=== PATIENT | female | born 1970 | race Caucasian/White ===

== ENCOUNTER 2018-09-24 18:13 | Inpatient (IN) | payer SELFPAY ==
--- NOTE | 2018-09-24 18:29 | C.PDOC ---
History Of Present Illness 47yo female with history of brain cancer with brain surgery 3 months ago, brought to ER by EMS for evaluation after patient was reported to have 10 seizures prior to arrival. Per EMS, patient had 1 unwitnessed and subsequent 9 witnessed seizures, each lasting approximately 30 seconds; per EMS time of onset was 1725 today. PT was noted to be seizing 15 minutes prior to EMS arrival. Patient was given 2mg Ativan and then 5mg Versed with some improvement. Upon arrival to ER, patient noted to have another seizure and at 1813 was given 2mg Ativan with no resolution. Currently, patient is unresponsive to verbal or painful stimuli. PMD: None Surgery done in [place] 3 months ago Time Seen by Provider: 09/24/18 18:21 Chief Complaint (Nursing): Seizure History Per: EMS, Family History/Exam Limitations: clinical condition Recent Seizure Activity Began: Mins Ago: (48) Number Of Seizures: Multiple (10) Length Of Seizures (Duration): Seconds (30) Post-ictal Period: Duration In Mins: (15) Past Medical History Reviewed: Historical Data, Nursing Documentation, Vital Signs - Medical History PMH: Malignancy (brain cancer) Family History: States: No Known Family Hx Review Of Systems Review Of Systems: ROS cannot be obtained secondary to pt's inabilty to answer questions. Neurological: Positive for: Seizures Physical Exam - Physical Exam Appears: In Acute Distress Skin: Normal Color, No Diaphoretic, No Pale Head: Atraumatic, Normacephalic Eye(s): bilateral: Other (L gaze preferrance) Nose: Normal Neck: Supple Chest: Symmetrical Cardiovascular: Rhythm Regular Respiratory: Normal Breath Sounds Gastrointestinal/Abdominal: Soft Extremity: No Pedal Edema, No Deformity, No Swelling Extremity: Bilateral: Atraumatic Neurological/Psych: No Oriented x3, Other (GCS of 4) Pain Response: Flexor Response To Pain Gait: Unable To Assess Other Neurological Findings: Other (left gaze preference) ED Course And Treatment - Laboratory Results Result Diagrams: 09/24/18 18:43 09/24/18 18:43 Critical Care Time - Critical Care Note Total Time (in mins): 30 Documented critical care: time excludes all time spent performing seperately billable procedures. Medical Decision Making Medical Decision Makinyo female with history of brain cancer, recent surgery 3 months ago Brought to ER by EMS after 10 seizure episodes; patient had post-ictal status of approx 13 minutes and then upon arrival to ER had another seziure Per family, patient takes Keppra 500mg BID and they confirm she took the first dose today. 1812 Patient given Ativan 4mg IV and Decadron 10mg IV with no relief [address] Gutierrez, neurologist director of home economics, recommending Keppra 1g drip GCS 5, remains non-responsive He is agreeable with plan for intubation for airway protection. 1842 Patient intubated by provider, see procedure note. Patient placed on Propofol drip. Labs, CT Head and CXR (post-intubation) ordered. [address] Eva Ny, supervisor sewing department and accepts patient. [address] Lety Ny, hospitalist director of home economics, who accepts patient for admission. Disposition - Disposition Disposition: HOME/ ROUTINE Disposition Time: 19:20 Condition: SERIOUS - Clinical Impression Clinical Impression: Seizure - Scribe Statement The provider has reviewed the documentation as recorded by the Tamar Osei Provider Attestation: All medical record entries made by the Tamar were at my direction and personally dictated by me. I have reviewed the chart and agree that the record accurately reflects my personal performance of the history, physical exam, medical decision making, and the department course for this patient. I have also personally directed, reviewed, and agree with the discharge instructions and d isposition. Procedure: Intubation - Time Performed Time Performed: 18:42 - Time Out Time Out: Side verified, Site verified, Patient ID confirmed - Consent Obtained Consent obtained: Emergent consent implied - Performed By Performed by: Attending Physician - Indications Indication(s):: Airway protection - Method Method:: Oral-Laryngoscopy - Rapid Sequence Intubation Anesthetic:: Etomidate (20mg) Paralytic:: Succinylcholine (100mg) - Tube type Tube type:: Endotracheal tube Tube size:: Cuffed (7.5) Number of attempts:: 1 Depth measured at lip: cm: 24 - Confirmation Confirmation: Bilat. breath sounds, No epigastric gurgle - Post-intubation CXR Post-intubation CXR: Tube in good position
[2018-09-24] MEDS ORDERED: levETIRAcetam 1,000 MG in Sodium Chloride 0.9% 100 ML IVPB SCH (18:30)
[2018-09-24] MEDS ORDERED: Etomidate 20 mg/10ml Inj IV STA (18:40)
[2018-09-24 18:46] LABS: BASO % 0.6 % (0.0-2.0); EOS % 0.2 % (0.0-4.0); HEMOGLOBIN 11.9 g/dL (11.0-16.0); LYMPH # 0.5 K/uL (1.0-4.3); LYMPH % 12.3 % (20.0-40.0); MEAN CELL VOLUME 84.7 fL (81.0-99.0); MEAN CORPUSCULAR HEMOGLOBIN 27.4 pg (27.0-31.0); MEAN CORPUSCULAR HGB CONC 32.3 g/dL (33.0-37.0); MEAN PLATELET VOLUME 9.2 fL (7.2-11.7); MONO # 0.1 K/uL (0.0-0.8); MONO % 3.5 % (0.0-10.0); NEUT # 3.4 K/uL (1.8-7.0); NEUT % 83.4 % (50.0-75.0); NRBC % 0.1 % (0.0-2.0); RBC 4.34 Mil/uL (3.80-5.20); RED CELL DISTRIBUTION WIDTH 15.2 % (11.5-14.5); WHITE BLOOD COUNT 4.1 K/uL (4.8-10.8)
[2018-09-24] MEDS ORDERED: Succinylcholine Chloride 20 mg/ml Syr (5 ml) IV STA (18:48)
--- NOTE | 2018-09-24 18:48 | C.PDOC ---
Time Seen by Provider: 09/24/18 18:21 Chief Complaint (Nursing): Seizure Disposition - Disposition
[2018-09-24] MEDS: Propofol 10 mg/ml 1,000 MG/100 ML VIAL IV PRN ×3 (18:55→22:50)
[2018-09-24 18:59] LABS: ALB/GLOB RATIO 1.4 (1.0-2.1); ALBUMIN 4.7 g/dL (3.5-5.0); BLOOD UREA NITROGEN 11 mg/dL (7-17); CALCIUM 8.4 mg/dl (8.6-10.4); GFR NON-AFRICAN AMERICAN > 60
[2018-09-24] MEDS ORDERED: Midazolam 2 MG/2 ML VIAL ONE ×2 (19:03→19:09)
[2018-09-24] MEDS ORDERED: Midazolam 2 MG/2 ML VIAL IVP ONE ×2 (19:05→19:06)
[2018-09-24 19:11] LABS: ALT/SGPT 21 U/L (9-52); AST/SGOT 31 U/L (14-36)
--- NOTE | 2018-09-24 20:06 | CP.PCM.CON ---
<Mark Villasenor - Last Filed: 09/24/18 19:45> History of Present Illness - History of Present Illness History of Present Illness: PGY-1 ICU consult note for Dr Eva Ny Patient is 47 year old female with past medical history of brain cancer s/p surgery 3 months ago done in [place], brought to the hospital by EMS due to seizures. Patient given ativan and Versed at site, and came to ED and had another seizure. Patient was given loading dose of keppra and was sedated with propofol, and intubated. Patient responding to stimulus, but not awake or oriented. No ROS was attainable due to patient's mental status Pmhx: brain cancer Shx: unspecified brain surgery 3 months ago Meds: unknown All: NKDA Soch and Fmhx: unattainable Past Patient History - Past Social History Smoking Status: Never Smoked - NEUROLOGICAL Hx Neurological Disorder: Yes Hx Seizures: Yes Other/Comment: brain tumor dx 3 months ago- surgery done as per daughter in [place] - PSYCHIATRIC Hx Substance Use: No - SURGICAL HISTORY Hx Surgeries: Yes Other/Comment: Brain tumor surgery Meds Allergies/Adverse Reactions: Allergies Allergy/AdvReac Type Severity Reaction Status Date / Time No Known Allergies Allergy Verified 09/24/18 18:17 - Medications Medications: Current Medications Levetiracetam 1,000 mg/ Sodium (Chloride) 110 mls @ 420 mls/hr IVPB Q12H [facility] Last Admin: 09/24/18 18:54 Dose: 420 mls/hr Propofol (Diprivan) 1,000 mg in 100 mls @ 2.041 mls/hr IV .Q24H PRN; Protocol PRN Reason: TITRATE PER MD ORDER Last Titration: 09/24/18 19:43 Dose: 30 mcg/kg/min, 12.247 mls/hr Levetiracetam 750 mg/ Sodium (Chloride) 107.5 mls @ 420 mls/hr IVPB Q12H [facility] Sodium Chloride (Sodium Chloride 0.9%) 1,000 mls @ 75 mls/hr IV .[id number] [facility] Cefepime HCl (Maxipime Iv 1 Gm Premix) 1 gm in 50 mls @ 100 mls/hr IVPB Q12H [facility]; Protocol Vancomycin HCl 1 gm/ Sodium (Chloride) 250 mls @ 166.7 mls/hr IVPB Q24H [facility]; Protocol Physical Exam - Constitutional Appears: No Acute Distress - Head Exam Head Exam: ATRAUMATIC, NORMAL INSPECTION, NORMOCEPHALIC - ENT Exam ENT Exam: Normal Exam Additional comments: Inutbated - Neck Exam Neck exam: Positive for: Normal Inspection - Respiratory Exam Respiratory Exam: Clear to Auscultation Bilateral, NORMAL BREATHING PATTERN - Cardiovascular Exam Cardiovascular Exam: Tachycardia, +S1, +S2 - GI/Abdominal Exam GI & Abdominal Exam: Distended, Soft - Extremities Exam Extremities exam: Positive for: normal inspection. Negative for: pedal edema - Back Exam Back exam: NORMAL INSPECTION - Neurological Exam Additional comments: not awake, not oriented responds to stimulus - Skin Skin Exam: Dry, Intact, Normal Color, Warm Results - Vital Signs Recent Vital Signs: Last Vital Signs Temp 97.9 F 09/24/18 18:30 Pulse 112 H 09/24/18 19:35 Resp 31 H 09/24/18 19:35 BP 113/60 09/24/18 19:35 Pulse Ox 100 09/24/18 19:35 - Labs Result Diagrams: 09/24/18 18:43 09/24/18 18:43 Labs: Laboratory Results - last 24 hr 09/24/18 09/24/18 09/24/18 18:19 18:43 18:43 WBC 4.1 L RBC 4.34 Hgb 11.9 Hct 36.8 MCV 84.7 MCH 27.4 MCHC 32.3 L RDW 15.2 H Plt Count 215 MPV 9.2 Neut % (Auto) 83.4 H Lymph % (Auto) 12.3 L Dodge % (Auto) 3.5 Eos % (Auto) 0.2 Baso % (Auto) 0.6 Neut # (Auto) 3.4 Lymph # (Auto) 0.5 L Dodge # (Auto) 0.1 Eos # (Auto) 0.0 Baso # (Auto) 0.0 Sodium 139 Potassium 4.0 Chloride 104 Carbon Dioxide 23 Anion Gap 16 BUN 11 Creatinine 0.6 L Est GFR ( Amer) > 60 Est GFR (Non-Af Amer) > 60 POC Glucose (mg/dL) 164 H Random Glucose 149 H Calcium 8.4 L Magnesium 2.0 Total Bilirubin 0.5 AST 31 ALT 21 Alkaline Phosphatase 91 Total Protein 8.0 Albumin 4.7 Globulin 3.3 Albumin/Globulin Ratio 1.4 Assessment & Plan - Assessment and Plan (Free Text) Plan: Pt is a 47 year old female with pmhx of brain cancer, brought by EMS for seizures this afternoon, intubated in ED, transferred to ICU for further management of ventilation and sedation with propofol , pending CT head and keppra given, on abx for possible aspiration after tube placement Neuro Ativan and Versed given by EMS seizure at arrival - given ativan, decadron ventilated and on sedation with propofol Loading Keppra x 1 1000mg Keppra 750mg Q12H Bedside EEG in the morning possible extubation tomorrow swallow eval Neurochecks hx of brain cancer CT head w.o contrast Neuro consult - Dr Gutierrez- help is appreciated Cardio NEERU Q4H x 2 Monitor vitals normotensive at this time Pulm Ventilation and sedated GI protonix NPO Nephro repeat am labs electrolytes wnl ID possible aspiration/ meningitis Vanco Q24H, Cefepime Q12H Lact blood culture urine culture Lact and CK PPX DVT -SCDS GI - Protonix Plan discussed with Dr Eva Villasenor, PGY-1 - Date & Time Date: 09/24/18 Time: 20:06 <Hollis Ny - Last Filed: 09/25/18 06:54> Meds - Medications Medications: Current Medications Levetiracetam 750 mg/ Sodium (Chloride) 107.5 mls @ 420 mls/hr IVPB Q12H [facility] Last Admin: 09/25/18 00:24 Dose: Not Given Sodium Chloride (Sodium Chloride 0.9%) 1,000 mls @ 75 mls/hr IV .[id number] [facility] Last Admin: 09/24/18 21:35 Dose: 75 mls/hr Cefepime HCl (Maxipime Iv 1 Gm Premix) 1 gm in 50 mls @ 100 mls/hr IVPB Q12H [facility]; Protocol Last Admin: 09/24/18 21:26 Dose: 100 mls/hr Vancomycin HCl 1 gm/ Sodium (Chloride) 250 mls @ 166.7 mls/hr IVPB Q24H [facility]; Protocol Last Admin: 09/24/18 22:17 Dose: 166.7 mls/hr Propofol (Diprivan) 1,000 mg in 100 mls @ 2.22 mls/hr IV .Q24H PRN; Protocol PRN Reason: TITRATE PER MD ORDER Last Admin: 09/25/18 03:32 Dose: 40 mcg/kg/min, 17.76 mls/hr Pantoprazole Sodium (Protonix Inj) 40 mg IVP DAILY [facility] Results - Vital Signs Recent Vital Signs: Last Vital Signs Temp 98.6 F 09/25/18 04:00 Pulse 53 L 09/25/18 05:14 Resp 20 09/25/18 05:14 BP 132/66 09/25/18 05:14 Pulse Ox 100 09/25/18 05:14 - Labs Result Diagrams: 09/25/18 05:55 09/25/18 05:55 Labs: Laboratory Results - last 24 hr 09/24/18 09/24/18 09/24/18 18:19 18:43 18:43 WBC 4.1 L RBC 4.34 Hgb 11.9 Hct 36.8 MCV 84.7 MCH 27.4 MCHC 32.3 L RDW 15.2 H Plt Count 215 MPV 9.2 Neut % (Auto) 83.4 H Lymph % (Auto) 12.3 L Dodge % (Auto) 3.5 Eos % (Auto) 0.2 Baso % (Auto) 0.6 Neut # (Auto) 3.4 Lymph # (Auto) 0.5 L Dodge # (Auto) 0.1 Eos # (Auto) 0.0 Baso # (Auto) 0.0 Puncture Site pCO2 pO2 HCO3 ABG pH ABG Total CO2 ABG O2 Saturation ABG Base Excess ABG Hemoglobin ABG Carboxyhemoglobin POC ABG HHb (Measured) ABG Methemoglobin Diaz Test A-a O2 Difference Respiratory Index Hgb O2 Saturation Vent Mode Mechanical Rate FiO2 Tidal Volume PEEP Sodium 139 Potassium 4.0 Chloride 104 Carbon Dioxide 23 Anion Gap 16 BUN 11 Creatinine 0.6 L Est GFR ( Amer) > 60 Est GFR (Non-Af Amer) > 60 POC Glucose (mg/dL) 164 H Random Glucose 149 H Lactic Acid Calcium 8.4 L Phosphorus Magnesium 2.0 Total Bilirubin 0.5 AST 31 ALT 21 Alkaline Phosphatase 91 Total Creatine Kinase CK-MB (Mass) Troponin I Total Protein 8.0 Albumin 4.7 Globulin 3.3 Albumin/Globulin Ratio 1.4 09/24/18 09/24/18 09/25/18 21:10 21:10 01:00 WBC RBC Hgb Hct MCV MCH MCHC RDW Plt Count MPV Neut % (Auto) Lymph % (Auto) Dodge % (Auto) Eos % (Auto) Baso % (Auto) Neut # (Auto) Lymph # (Auto) Dodge # (Auto) Eos # (Auto) Baso # (Auto) Puncture Site pCO2 pO2 HCO3 ABG pH ABG Total CO2 ABG O2 Saturation ABG Base Excess ABG Hemoglobin ABG Carboxyhemoglobin POC ABG HHb (Measured) ABG Methemoglobin Diaz Test A-a O2 Difference Respiratory Index Hgb O2 Saturation Vent Mode Mechanical Rate FiO2 Tidal Volume PEEP Sodium Potassium Chloride Carbon Dioxide Anion Gap BUN Creatinine Est GFR ( Amer) Est GFR (Non-Af Amer) POC Glucose (mg/dL) 135 H Random Glucose Lactic Acid 1.4 Calcium Phosphorus Magnesium Total Bilirubin AST ALT Alkaline Phosphatase Total Creatine Kinase 185 H CK-MB (Mass) 0.71 Troponin I < 0.0120 Total Protein Albumin Globulin Albumin/Globulin Ratio 09/25/18 09/25/18 09/25/18 05:40 05:55 05:55 WBC RBC Hgb Hct MCV MCH MCHC RDW Plt Count MPV Neut % (Auto) Lymph % (Auto) Dodge % (Auto) Eos % (Auto) Baso % (Auto) Neut # (Auto) Lymph # (Auto) Dodge # (Auto) Eos # (Auto) Baso # (Auto) Puncture Site Rb pCO2 26 L pO2 156 H HCO3 22.1 ABG pH 7.47 H ABG Total CO2 19.7 L ABG O2 Saturation 99.4 H ABG Base Excess -3.7 L ABG Hemoglobin 10.5 L ABG Carboxyhemoglobin 1.2 POC ABG HHb (Measured) 0.6 ABG Methemoglobin 0.7 Diaz Test Na A-a O2 Difference 97.0 Respiratory Index 0.6 Hgb O2 Saturation 97.5 Vent Mode Prvc Mechanical Rate 20 FiO2 40.0 Tidal Volume 450 PEEP 5 Sodium 139 Potassium 4.0 Chloride 108 H Carbon Dioxide 21 L Anion Gap 14 BUN 8 Creatinine 0.5 L Est GFR ( Amer) > 60 Est GFR (Non-Af Amer) > 60 POC Glucose (mg/dL) Random Glucose 142 H Lactic Acid 1.4 Calcium 8.8 Phosphorus 3.1 Magnesium 2.1 Total Bilirubin 0.3 AST 30 ALT 28 Alkaline Phosphatase 91 Total Creatine Kinase CK-MB (Mass) Troponin I Total Protein 7.2 Albumin 4.4 Globulin 2.9 Albumin/Globulin Ratio 1.5 09/25/18 05:55 WBC 3.9 L RBC 4.11 Hgb 11.5 Hct 34.5 MCV 83.9 MCH 27.9 MCHC 33.2 RDW 15.5 H Plt Count 216 MPV 9.4 Neut % (Auto) 78.6 H Lymph % (Auto) 18.0 L Dodge % (Auto) 3.2 Eos % (Auto) 0.0 Baso % (Auto) 0.2 Neut # (Auto) 3.1 Lymph # (Auto) 0.7 L Dodge # (Auto) 0.1 Eos # (Auto) 0.0 Baso # (Auto) 0.0 Puncture Site pCO2 pO2 HCO3 ABG pH ABG Total CO2 ABG O2 Saturation ABG Base Excess ABG Hemoglobin ABG Carboxyhemoglobin POC ABG HHb (Measured) ABG Methemoglobin Diaz Test A-a O2 Difference Respiratory Index Hgb O2 Saturation Vent Mode Mechanical Rate FiO2 Tidal Volume PEEP Sodium Potassium Chloride Carbon Dioxide Anion Gap BUN Creatinine Est GFR ( Amer) Est GFR (Non-Af Amer) POC Glucose (mg/dL) Random Glucose Lactic Acid Calcium Phosphorus Magnesium Total Bilirubin AST ALT Alkaline Phosphatase Total Creatine Kinase CK-MB (Mass) Troponin I Total Protein Albumin Globulin Albumin/Globulin Ratio Assessment & Plan - Assessment and Plan (Free Text) Plan: Seizures post brain mass resectoin -continue barbara yang EEG -hypoxic respiraotry failrue: continue: ventilation to keep spo2 >92 and pH b/w 7.35-7.45 -Aspiration: start empirically ebx, obtain sputum cultuer an sserial lactic -continue dvt/.pud ppx cc time 49 minutes above note refelcts my clinical management
[2018-09-24] MEDS: Cefepime IV 1 gm in Dextrose 1 GM/50 ML BAG IVPB SCH (21:26)
[2018-09-24] MEDS: Sodium Chloride 0.9% 1,000 ML IV SCH (21:35)
[2018-09-24 21:39] LABS: CK-MB 0.71 ng/mL (0.0-3.38)
[2018-09-24 22:35] VITALS: BMI 30.8
--- NOTE | 2018-09-24 23:35 | CP.PCM.HP ---
<Quan Schofield - Last Filed: 09/24/18 23:32> History of Present Illness - History of Present Illness History of Present Illness: PGY-1 History and Physical for Dr[address] 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 Patient had post-ictal status of ~13 minutes and then upon arrival to ER had another witnessed seizure. Per family, p lyssa takes Keppra 500mg BID and they confirm she took the first dose today. Patient was given Ativan 4 mg , Versed 5 mg on the field. Also given Ativan 4 mg and Decadron 10 mg IV in ED with no relief. Per Neurology recs, loading dose of Keppra was then given, patient placed on propofol drip and intubated. On current exam, patient responsive to painful stimuli, seen making minor spontaneous gestu res with LEs but not awake or oriented. 12 pt ROS unattainable due to clinical condition. PMHx: CVA, gliobastoma multiforme of R frontal lobe PSHx: surgical resection of brain tumor (3 months ago) Allergies: NKDA Home Meds: as per chart Family Hx: unknown Social Hx: unknown Present on Admission - Present on Admission Any Indicators Present on Admission: No Review of Systems - Review of Systems Systems not reviewed;Unavailable: Altered Mental Status, Intubated Past Patient History - Past Social History Smoking Status: Never Smoked - NEUROLOGICAL Hx Neurological Disorder: Yes Hx Seizures: Yes Other/Comment: brain tumor dx 3 months ago- surgery done as per daughter in [place] - MUSCULOSKELETAL/RHEUMATOLOGICAL Hx Falls: Yes - PSYCHIATRIC Hx Substance Use: No - SURGICAL HISTORY Hx Surgeries: Yes Other/Comment: Brain tumor surgery Meds Allergies/Adverse Reactions: Allergies Allergy/AdvReac Type Severity Reaction Status Date / Time No Known Allergies Allergy Verified 09/24/18 18:17 Physical Exam - Constitutional Appears: No Acute Distress - Head Exam Head Exam: ATRAUMATIC, NORMAL INSPECTION, NORMOCEPHALIC - ENT Exam ENT Exam: Normal Exam Additional comments: Intubated - Neck Exam Neck exam: Positive for: Normal Inspection - Respiratory Exam Respiratory Exam: Clear to Auscultation Bilateral, NORMAL BREATHING PATTERN Additional comments: on ventilator FiO2 40% - Cardiovascular Exam Cardiovascular Exam: REGULAR RHYTHM, +S1, +S2 - GI/Abdominal Exam GI & Abdominal Exam: Normal Bowel Sounds, Soft - Extremities Exam Extremities exam: Positive for: normal capillary refill, normal inspection, pedal pulses present. Negative for: pedal edema - Neurological Exam Additional comments: not awake, not oriented responds to stimulus - Skin Skin Exam: Dry, Intact, Normal Color, Warm Results - Vital Signs Recent Vital Signs: Last Vital Signs Temp 100.8 F H 09/24/18 20:00 Pulse 74 09/24/18 23:00 Resp 20 09/24/18 23:00 BP 110/56 L 09/24/18 23:14 Pulse Ox 100 09/24/18 23:00 - Labs Result Diagrams: 09/24/18 18:43 09/24/18 18:43 Labs: Laboratory Results - last 24 hr 09/24/18 09/24/18 09/24/18 18:19 18:43 18:43 WBC 4.1 L RBC 4.34 Hgb 11.9 Hct 36.8 MCV 84.7 MCH 27.4 MCHC 32.3 L RDW 15.2 H Plt Count 215 MPV 9.2 Neut % (Auto) 83.4 H Lymph % (Auto) 12.3 L [place] % (Auto) 3.5 Eos % (Auto) 0.2 Baso % (Auto) 0.6 Neut # (Auto) 3.4 Lymph # (Auto) 0.5 L [place] # (Auto) 0.1 Eos # (Auto) 0.0 Baso # (Auto) 0.0 Sodium 139 Potassium 4.0 Chloride 104 Carbon Dioxide 23 Anion Gap 16 BUN 11 Creatinine 0.6 L Est GFR ( Amer) > 60 Est GFR (Non-Af Amer) > 60 POC Glucose (mg/dL) 164 H Random Glucose 149 H Lactic Acid Calcium 8.4 L Magnesium 2.0 Total Bilirubin 0.5 AST 31 ALT 21 Alkaline Phosphatase 91 Total Creatine Kinase CK-MB (Mass) Troponin I Total Protein 8.0 Albumin 4.7 Globulin 3.3 Albumin/Globulin Ratio 1.4 09/24/18 09/24/18 21:10 21:10 WBC RBC Hgb Hct MCV MCH MCHC RDW Plt Count MPV Neut % (Auto) Lymph % (Auto) [place] % (Auto) Eos % (Auto) Baso % (Auto) Neut # (Auto) Lymph # (Auto) [place] # (Auto) Eos # (Auto) Baso # (Auto) Sodium Potassium Chloride Carbon Dioxide Anion Gap BUN Creatinine Est GFR ( Amer) Est GFR (Non-Af Amer) POC Glucose (mg/dL) Random Glucose Lactic Acid 1.4 Calcium Magnesium Total Bilirubin AST ALT Alkaline Phosphatase Total Creatine Kinase 185 H CK-MB (Mass) 0.71 Troponin I < 0.0120 Total Protein Albumin Globulin Albumin/Globulin Ratio Assessment & Plan - Assessment and Plan (Free Text) Plan: Status epilepticus -s/p Ativan 4 mg, Versed 5 mg on field -s/p Ativan 4 mg, Decadron 10 mg IV in ED -loading dose of Keppra (1 gm) -Keppra 750 mg q12h -Neurology (Dr. Gutierrez) on case -bedside EEG scheduled tomorrow AM -CT head: s/p L frontopariental craniotomy w/ underlying postsurgical encephalomalacia and porencephaly. No acute pathology -f/u brain MRI -propfol ggt for sedatioon -intubated -vanco/cefepime emprically for possible aspiration -f/u lactate, BCx, Urine Cx -in ICU for further monitoring PPx, Diet, Disposition -DVT: scds -GI: protonix -Diet: NPO Case discussed with Dr. Jimmy Schofield DO, PGY-1 <Chito Marquez P - Last Filed: 09/25/18 08:12> Results - Vital Signs Recent Vital Signs: Last Vital Signs Temp 98.6 F 09/25/18 04:00 Pulse 52 L 09/25/18 07:14 Resp 20 09/25/18 07:14 BP 129/55 L 09/25/18 07:14 Pulse Ox 100 09/25/18 07:14 - Labs Result Diagrams: 09/25/18 05:55 09/25/18 05:55 Labs: Laboratory Results - last 24 hr 09/24/18 09/24/18 09/24/18 18:19 18:43 18:43 WBC 4.1 L RBC 4.34 Hgb 11.9 Hct 36.8 MCV 84.7 MCH 27.4 MCHC 32.3 L RDW 15.2 H Plt Count 215 MPV 9.2 Neut % (Auto) 83.4 H Lymph % (Auto) 12.3 L [place] % (Auto) 3.5 Eos % (Auto) 0.2 Baso % (Auto) 0.6 Neut # (Auto) 3.4 Lymph # (Auto) 0.5 L [place] # (Auto) 0.1 Eos # (Auto) 0.0 Baso # (Auto) 0.0 Puncture Site pCO2 pO2 HCO3 ABG pH ABG Total CO2 ABG O2 Saturation ABG Base Excess ABG Hemoglobin ABG Carboxyhemoglobin POC ABG HHb (Measured) ABG Methemoglobin Diaz Test A-a O2 Difference Respiratory Index Hgb O2 Saturation Vent Mode Mechanical Rate FiO2 Tidal Volume PEEP Sodium 139 Potassium 4.0 Chloride 104 Carbon Dioxide 23 Anion Gap 16 BUN 11 Creatinine 0.6 L Est GFR ( Amer) > 60 Est GFR (Non-Af Amer) > 60 POC Glucose (mg/dL) 164 H Random Glucose 149 H Lactic Acid Calcium 8.4 L Phosphorus Magnesium 2.0 Total Bilirubin 0.5 AST 31 ALT 21 Alkaline Phosphatase 91 Total Creatine Kinase CK-MB (Mass) Troponin I Total Protein 8.0 Albumin 4.7 Globulin 3.3 Albumin/Globulin Ratio 1.4 09/24/18 09/24/18 09/25/18 21:10 21:10 01:00 WBC RBC Hgb Hct MCV MCH MCHC RDW Plt Count MPV Neut % (Auto) Lymph % (Auto) [place] % (Auto) Eos % (Auto) Baso % (Auto) Neut # (Auto) Lymph # (Auto) [place] # (Auto) Eos # (Auto) Baso # (Auto) Puncture Site pCO2 pO2 HCO3 ABG pH ABG Total CO2 ABG O2 Saturation ABG Base Excess ABG Hemoglobin ABG Carboxyhemoglobin POC ABG HHb (Measured) ABG Methemoglobin Diaz Test A-a O2 Difference Respiratory Index Hgb O2 Saturation Vent Mode Mechanical Rate FiO2 Tidal Volume PEEP Sodium Potassium Chloride Carbon Dioxide Anion Gap BUN Creatinine Est GFR ( Amer) Est GFR (Non-Af Amer) POC Glucose (mg/dL) 135 H Random Glucose Lactic Acid 1.4 Calcium Phosphorus Magnesium Total Bilirubin AST ALT Alkaline Phosphatase Total Creatine Kinase 185 H CK-MB (Mass) 0.71 Troponin I < 0.0120 Total Protein Albumin Globulin Albumin/Globulin Ratio 09/25/18 09/25/18 09/25/18 05:40 05:55 05:55 WBC RBC Hgb Hct MCV MCH MCHC RDW Plt Count MPV Neut % (Auto) Lymph % (Auto) [place] % (Auto) Eos % (Auto) Baso % (Auto) Neut # (Auto) Lymph # (Auto) [place] # (Auto) Eos # (Auto) Baso # (Auto) Puncture Site Rb pCO2 26 L pO2 156 H HCO3 22.1 ABG pH 7.47 H ABG Total CO2 19.7 L ABG O2 Saturation 99.4 H ABG Base Excess -3.7 L ABG Hemoglobin 10.5 L ABG Carboxyhemoglobin 1.2 POC ABG HHb (Measured) 0.6 ABG Methemoglobin 0.7 Diaz Test Na A-a O2 Difference 97.0 Respiratory Index 0.6 Hgb O2 Saturation 97.5 Vent Mode Prvc Mechanical Rate 20 FiO2 40.0 Tidal Volume 450 PEEP 5 Sodium 139 Potassium 4.0 Chloride 108 H Carbon Dioxide 21 L Anion Gap 14 BUN 8 Creatinine 0.5 L Est GFR ( Amer) > 60 Est GFR (Non-Af Amer) > 60 POC Glucose (mg/dL) Random Glucose 142 H Lactic Acid 1.4 Calcium 8.8 Phosphorus 3.1 Magnesium 2.1 Total Bilirubin 0.3 AST 30 ALT 28 Alkaline Phosphatase 91 Total Creatine Kinase CK-MB (Mass) Troponin I Total Protein 7.2 Albumin 4.4 Globulin 2.9 Albumin/Globulin Ratio 1.5 09/25/18 05:55 WBC 3.9 L RBC 4.11 Hgb 11.5 Hct 34.5 MCV 83.9 MCH 27.9 MCHC 33.2 RDW 15.5 H Plt Count 216 MPV 9.4 Neut % (Auto) 78.6 H Lymph % (Auto) 18.0 L [place] % (Auto) 3.2 Eos % (Auto) 0.0 Baso % (Auto) 0.2 Neut # (Auto) 3.1 Lymph # (Auto) 0.7 L [place] # (Auto) 0.1 Eos # (Auto) 0.0 Baso # (Auto) 0.0 Puncture Site pCO2 pO2 HCO3 ABG pH ABG Total CO2 ABG O2 Saturation ABG Base Excess ABG Hemoglobin ABG Carboxyhemoglobin POC ABG HHb (Measured) ABG Methemoglobin Diaz Test A-a O2 Difference Respiratory Index Hgb O2 Saturation Vent Mode Mechanical Rate FiO2 Tidal Volume PEEP Sodium Potassium Chloride Carbon Dioxide Anion Gap BUN Creatinine Est GFR ( Amer) Est GFR (Non-Af Amer) POC Glucose (mg/dL) Random Glucose Lactic Acid Calcium Phosphorus Magnesium Total Bilirubin AST ALT Alkaline Phosphatase Total Creatine Kinase CK-MB (Mass) Troponin I Total Protein Albumin Globulin Albumin/Globulin Ratio Attending/Attestation - Attestation I have personally seen and examined this patient.: Yes I have fully participated in the care of the patient.: Yes I have reviewed all pertinent clinical information: Yes Notes (Text): 09/25/18 08:09 Intractable seizure, recent GBM related craniotomy on the left side, patient examined while she was sedated with diprivan and loaded with keppra and started on IV abx suspecting aspiration, fio2 reduced to 40% tolerating ok, the clinical response appeared more purposeful suggesting not in status but continuous EEG still pending, gi/dvt prophylaxis, see orders for detail.
[2018-09-25] MEDS: Propofol 10 mg/ml 1,000 MG/100 ML VIAL IV PRN ×2 (03:32→08:10)
[2018-09-25 06:02] LABS: BASO % 0.2 % (0.0-2.0); HEMOGLOBIN 11.5 g/dL (11.0-16.0); LYMPH # 0.7 K/uL (1.0-4.3); MEAN CELL VOLUME 83.9 fL (81.0-99.0); MEAN CORPUSCULAR HEMOGLOBIN 27.9 pg (27.0-31.0); MEAN CORPUSCULAR HGB CONC 33.2 g/dL (33.0-37.0); MEAN PLATELET VOLUME 9.4 fL (7.2-11.7); MONO # 0.1 K/uL (0.0-0.8); MONO % 3.2 % (0.0-10.0); NEUT # 3.1 K/uL (1.8-7.0); NEUT % 78.6 % (50.0-75.0); NRBC % 0.1 % (0.0-2.0); RBC 4.11 Mil/uL (3.80-5.20); RED CELL DISTRIBUTION WIDTH 15.5 % (11.5-14.5); WHITE BLOOD COUNT 3.9 K/uL (4.8-10.8)
[2018-09-25 06:07] LABS: ARTERIAL BLOOD GAS HCO3 22.1 mmol/L (21-28); ARTERIAL BLOOD GAS HEMOGLOBIN 10.5 g/dL (11.7-17.4); ARTERIAL BLOOD GAS O2 SAT 99.4 % (95-98); ARTERIAL BLOOD GAS PCO2 26 mm/Hg (35-45); ARTERIAL BLOOD GAS PH 7.47 (7.35-7.45); ARTERIAL BLOOD GAS PO2 156 mm/Hg (80-100); ARTERIAL BLOOD GAS TCO2 19.7 mmol/L (22-28)
[2018-09-25 06:20] LABS: ALB/GLOB RATIO 1.5 (1.0-2.1); ALBUMIN 4.4 g/dL (3.5-5.0); ALT/SGPT 28 U/L (9-52); AST/SGOT 30 U/L (14-36); BLOOD UREA NITROGEN 8 mg/dL (7-17); CALCIUM 8.8 mg/dl (8.6-10.4); GFR NON-AFRICAN AMERICAN > 60
[2018-09-25] MEDS: Cefepime IV 1 gm in Dextrose 1 GM/50 ML BAG IVPB SCH ×2 (07:52→19:10)
--- NOTE | 2018-09-25 08:17 | RAD ---
Date of service: 09/25/2018 HISTORY: ETT COMPARISON: Chest radiographs 09/24/2018. FINDINGS: LUNGS: Endotracheal tube unchanged in position. In the interval, a nasogastric tube is in placed enter into the abdomen with the tip off the image. No consolidation bilaterally. Improved aeration bilaterally. PLEURA: No significant pleural effusion identified, no pneumothorax apparent. CARDIOVASCULAR: No aortic atherosclerotic calcification present. Normal cardiac size. No pulmonary vascular congestion. OSSEOUS STRUCTURES: No significant abnormalities. VISUALIZED UPPER ABDOMEN: Normal. OTHER FINDINGS: None. IMPRESSION: Stable ET tube positioning. Improved aeration bilaterally. Nasogastric tube placed in the interval entering into the left jono abdomen. Tip off the image. Consolidation or pleural effusion bilaterally. No pulmonary vascular congestion.
--- NOTE | 2018-09-25 08:22 | RAD ---
HISTORY: seizure COMPARISON: No prior chest x-ray available for comparison. Subsequent chest x-ray performed 09/25/18 TECHNIQUE: Chest, one view. FINDINGS: Examination limited by habitus, hypoinflation, and patient obliquity. LUNGS: Superior most lung field excluded from view (right greater than left). The endotracheal tube resides at the fareed and should be repositioned. Patchy bibasilar atelectasis or infiltrates. Probable trace pleural effusions. No definite pneumothorax. CARDIOVASCULAR: Heart size appears top normal. OSSEOUS STRUCTURES: Degenerative changes. VISUALIZED UPPER ABDOMEN: Unremarkable. OTHER FINDINGS: None. IMPRESSION: Superior most lung field excluded from view (right greater than left). The endotracheal tube resides at the fareed and should be repositioned; subsequent chest x-ray performed demonstrate endotracheal tube has already been repositioned terminating approximately 2.3 cm above the fareed. Patchy bibasilar atelectasis or infiltrates. Probable trace pleural effusions.
--- NOTE | 2018-09-25 09:12 | CT ---
Date of service: 09/24/2018 PROCEDURE: CT HEAD WITHOUT CONTRAST. HISTORY: seizure, hx of tumor removal COMPARISON: None available. TECHNIQUE: Axial computed tomography images were obtained through the head/brain without intravenous contrast. Radiation dose: Total exam DLP = 908.62 mGy-cm. This CT exam was performed using one or more of the following dose reduction techniques: Automated exposure control, adjustment of the mA and/or kV according to patient size, and/or use of iterative reconstruction technique. FINDINGS: HEMORRHAGE: No intracranial hemorrhage. BRAIN: Postoperative change identified at the left frontal lobe comprised of limited cystic encephalomalacia and volume loss in this patient with history of prior left frontal craniotomy. No positive mass effect identified at the operative site or throughout the remainder of the brain including the posterior fossa. The remainder of the cerebrum exhibits good corticomedullary preservation with no parenchymal edema identified. Posterior fossa contents are unremarkable including the brainstem. VENTRICLES: Unremarkable. No hydrocephalus. CALVARIUM: Unremarkable. PARANASAL SINUSES: Mild multifocal sinusitis affects bilateral sphenoid ethmoid and maxillary sinuses with left frontal sinus hypoplasia identified. MASTOID AIR CELLS: Unremarkable as visualized. No inflammatory changes. OTHER FINDINGS: None. IMPRESSION: Postoperative changes status post left frontal craniotomy with cystic encephalomalacia and volume loss noted at the left frontal lobe. No positive mass effect or definite intracranial hemorrhage appreciable. No prior comparison available. Consider follow-up MRI with and without contrast if clinically warranted. Correlation with prior outside imaging can be performed if retrieved as well. Addendum to this report could subsequently be provided. Examination otherwise unremarkable within the intracranial space. Concordant preliminary report from [facility], 09/24/2018, 8:08 p.m..
[2018-09-25] MEDS: Sodium Chloride 0.9% 1,000 ML IV SCH ×3 (09:42→22:00)
--- NOTE | 2018-09-25 13:02 | CP.CCUPN ---
<Trey Mcdonald - Last Filed: 09/25/18 15:53> CCU Objective - Vital Signs / Intake & Output Vital Signs (Last 4 hours): Vital Signs Temp Pulse Resp BP Pulse Ox 09/25/18 15:14 57 L 12 127/56 L 98 09/25/18 15:00 61 20 99 09/25/18 14:15 60 22 130/68 98 09/25/18 14:14 70 18 138/76 99 09/25/18 14:00 65 21 97 09/25/18 13:14 64 135/72 100 09/25/18 13:00 68 100 09/25/18 12:44 83 132/77 100 09/25/18 12:14 75 135/38 L 100 09/25/18 12:00 99.2 F 80 31 H 132/77 96 Intake and Output (Last 8hrs): Intake & Output 09/25/18 09/25/18 09/25/18 06:59 14:59 22:59 Intake Total 828.4 907.7 75 Output Total 650 750 Balance 178.4 907.7 -675 Weight 162 lb 11.218 oz Intake: IV 100 180 Intake, IV Amount 728.4 727.7 75 Left Antecubital 128.4 77.7 0 Left External Jugular 300 Right Hand 300 650 75 Output: Gastric Amount 200 250 Stomach 200 250 Urine 450 500 Urine, Voided 450 500 Urine/Stool Mix 0 Other: # Voids Urine, Voided 2 1 - Medications Active Medications: Active Medications Generic Name Dose Route Start Last Admin Trade Name Freq PRN Reason Stop Dose Admin Heparin Sodium (Porcine) 5,000 units 09/25/18 22:00 Heparin SC Q12 LIVIER Sodium Chloride 1,000 mls @ 75 mls/hr 09/24/18 19:15 09/25/18 09:42 Sodium Chloride 0.9% IV Not Given .[id number] LIVIER Cefepime HCl 1 gm in 50 mls @ 100 mls/hr 09/24/18 19:15 09/25/18 07:52 Maxipime Iv 1 Gm Premix IVPB 100 mls/hr Q12H LIVIER Administration Protocol Vancomycin HCl 1 gm/ Sodium 250 mls @ 166.7 mls/hr 09/24/18 19:45 09/24/18 22:17 Chloride IVPB 166.7 mls/hr Q24H LIVIER Administration Protocol Propofol 1,000 mg in 100 mls @ 2.22 mls/hr 09/24/18 22:38 09/25/18 12:04 Diprivan IV 0 mcg/kg/min .Q24H PRN 0 mls/hr TITRATE PER MD ORDER Titration Protocol 5 MCG/KG/MIN Levetiracetam 1,000 mg/ Sodium 110 mls @ 420 mls/hr 09/25/18 13:00 09/25/18 13:06 Chloride IVPB 420 mls/hr Q12H LIVIER Administration Pantoprazole Sodium 40 mg 09/25/18 10:00 09/25/18 12:18 Protonix Inj IVP 40 mg DAILY LIVIER Administration - Patient Studies Lab Studies: Microbiology Studies 09/24/18 22:29 Gram Stain - Final Trachasp Lab Studies 09/25/18 09/25/18 09/25/18 Range/Units 12:13 07:26 05:55 WBC 3.9 L (4.8-10.8) K/uL RBC 4.11 (3.80-5.20) Mil/uL Hgb 11.5 (11.0-16.0) g/dL Hct 34.5 (34.0-47.0) % MCV 83.9 (81.0-99.0) fL MCH 27.9 (27.0-31.0) pg MCHC 33.2 (33.0-37.0) g/dL RDW 15.5 H (11.5-14.5) % Plt Count 216 (130-400) K/uL MPV 9.4 (7.2-11.7) fL Neut % (Auto) 78.6 H (50.0-75.0) % Lymph % (Auto) 18.0 L (20.0-40.0) % Alpine % (Auto) 3.2 (0.0-10.0) % Eos % (Auto) 0.0 (0.0-4.0) % Baso % (Auto) 0.2 (0.0-2.0) % Neut # (Auto) 3.1 (1.8-7.0) K/uL Lymph # (Auto) 0.7 L (1.0-4.3) K/uL Alpine # (Auto) 0.1 (0.0-0.8) K/uL Eos # (Auto) 0.0 (0.0-0.7) K/uL Baso # (Auto) 0.0 (0.0-0.2) K/uL Puncture Site pCO2 (35-45) mm/Hg pO2 (80-100) mm/Hg HCO3 (21-28) mmol/L ABG pH (7.35-7.45) ABG Total CO2 (22-28) mmol/L ABG O2 Saturation (95-98) % ABG Base Excess (-2.0-3.0) mmol/L ABG Hemoglobin (11.7-17.4) g/dL ABG Carboxyhemoglobin (0.5-1.5) % POC ABG HHb (Measured) (0.0-5.0) % ABG Methemoglobin (0.0-3.0) % Diaz Test A-a O2 Difference mm/Hg Respiratory Index Hgb O2 Saturation (95.0-98.0) % Vent Mode Mechanical Rate FiO2 % Tidal Volume PEEP Sodium (132-148) mmol/L Potassium (3.6-5.2) mmol/L Chloride (98-107) mmol/L Carbon Dioxide (22-30) mmol/L Anion Gap (10-20) BUN (7-17) mg/dL Creatinine (0.7-1.2) mg/dL Est GFR ( Amer) Est GFR (Non-Af Amer) POC Glucose (mg/dL) 112 H 137 H (65-110) mg/dL Random Glucose (65-105) mg/dL Lactic Acid (0.7-2.1) mmol/L Calcium (8.6-10.4) mg/dl Phosphorus (2.5-4.5) mg/dL Magnesium (1.6-2.3) mg/dL Total Bilirubin (0.2-1.3) mg/dL AST (14-36) U/L ALT (9-52) U/L Alkaline Phosphatase (38-126) U/L Total Creatine Kinase (30-135) U/L CK-MB (Mass) (0.0-3.38) ng/mL Troponin I (0.00-0.120) ng/mL Total Protein (6.3-8.3) g/dL Albumin (3.5-5.0) g/dL Globulin (2.2-3.9) gm/dL Albumin/Globulin Ratio (1.0-2.1) 09/25/18 09/25/18 09/25/18 Range/Units 05:55 05:55 05:40 WBC (4.8-10.8) K/uL RBC (3.80-5.20) Mil/uL Hgb (11.0-16.0) g/dL Hct (34.0-47.0) % MCV (81.0-99.0) fL MCH (27.0-31.0) pg MCHC (33.0-37.0) g/dL RDW (11.5-14.5) % Plt Count (130-400) K/uL MPV (7.2-11.7) fL Neut % (Auto) (50.0-75.0) % Lymph % (Auto) (20.0-40.0) % Alpine % (Auto) (0.0-10.0) % Eos % (Auto) (0.0-4.0) % Baso % (Auto) (0.0-2.0) % Neut # (Auto) (1.8-7.0) K/uL Lymph # (Auto) (1.0-4.3) K/uL Alpine # (Auto) (0.0-0.8) K/uL Eos # (Auto) (0.0-0.7) K/uL Baso # (Auto) (0.0-0.2) K/uL Puncture Site Rb pCO2 26 L (35-45) mm/Hg pO2 156 H (80-100) mm/Hg HCO3 22.1 (21-28) mmol/L ABG pH 7.47 H (7.35-7.45) ABG Total CO2 19.7 L (22-28) mmol/L ABG O2 Saturation 99.4 H (95-98) % ABG Base Excess -3.7 L (-2.0-3.0) mmol/L ABG Hemoglobin 10.5 L (11.7-17.4) g/dL ABG Carboxyhemoglobin 1.2 (0.5-1.5) % POC ABG HHb (Measured) 0.6 (0.0-5.0) % ABG Methemoglobin 0.7 (0.0-3.0) % Diaz Test Na A-a O2 Difference 97.0 mm/Hg Respiratory Index 0.6 Hgb O2 Saturation 97.5 (95.0-98.0) % Vent Mode Prvc Mechanical Rate 20 FiO2 40.0 % Tidal Volume 450 PEEP 5 Sodium 139 (132-148) mmol/L Potassium 4.0 (3.6-5.2) mmol/L Chloride 108 H (98-107) mmol/L Carbon Dioxide 21 L (22-30) mmol/L Anion Gap 14 (10-20) BUN 8 (7-17) mg/dL Creatinine 0.5 L (0.7-1.2) mg/dL Est GFR ( Amer) > 60 Est GFR (Non-Af Amer) > 60 POC Glucose (mg/dL) (65-110) mg/dL Random Glucose 142 H (65-105) mg/dL Lactic Acid 1.4 (0.7-2.1) mmol/L Calcium 8.8 (8.6-10.4) mg/dl Phosphorus 3.1 (2.5-4.5) mg/dL Magnesium 2.1 (1.6-2.3) mg/dL Total Bilirubin 0.3 (0.2-1.3) mg/dL AST 30 (14-36) U/L ALT 28 (9-52) U/L Alkaline Phosphatase 91 (38-126) U/L Total Creatine Kinase (30-135) U/L CK-MB (Mass) (0.0-3.38) ng/mL Troponin I (0.00-0.120) ng/mL Total Protein 7.2 (6.3-8.3) g/dL Albumin 4.4 (3.5-5.0) g/dL Globulin 2.9 (2.2-3.9) gm/dL Albumin/Globulin Ratio 1.5 (1.0-2.1) 09/25/18 09/24/18 09/24/18 Range/Units 01:00 21:10 21:10 WBC (4.8-10.8) K/uL RBC (3.80-5.20) Mil/uL Hgb (11.0-16.0) g/dL Hct (34.0-47.0) % MCV (81.0-99.0) fL MCH (27.0-31.0) pg MCHC (33.0-37.0) g/dL RDW (11.5-14.5) % Plt Count (130-400) K/uL MPV (7.2-11.7) fL Neut % (Auto) (50.0-75.0) % Lymph % (Auto) (20.0-40.0) % Alpine % (Auto) (0.0-10.0) % Eos % (Auto) (0.0-4.0) % Baso % (Auto) (0.0-2.0) % Neut # (Auto) (1.8-7.0) K/uL Lymph # (Auto) (1.0-4.3) K/uL Alpine # (Auto) (0.0-0.8) K/uL Eos # (Auto) (0.0-0.7) K/uL Baso # (Auto) (0.0-0.2) K/uL Puncture Site pCO2 (35-45) mm/Hg pO2 (80-100) mm/Hg HCO3 (21-28) mmol/L ABG pH (7.35-7.45) ABG Total CO2 (22-28) mmol/L ABG O2 Saturation (95-98) % ABG Base Excess (-2.0-3.0) mmol/L ABG Hemoglobin (11.7-17.4) g/dL ABG Carboxyhemoglobin (0.5-1.5) % POC ABG HHb (Measured) (0.0-5.0) % ABG Methemoglobin (0.0-3.0) % Diaz Test A-a O2 Difference mm/Hg Respiratory Index Hgb O2 Saturation (95.0-98.0) % Vent Mode Mechanical Rate FiO2 % Tidal Volume PEEP Sodium (132-148) mmol/L Potassium (3.6-5.2) mmol/L Chloride (98-107) mmol/L Carbon Dioxide (22-30) mmol/L Anion Gap (10-20) BUN (7-17) mg/dL Creatinine (0.7-1.2) mg/dL Est GFR ( Amer) Est GFR (Non-Af Amer) POC Glucose (mg/dL) 135 H (65-110) mg/dL Random Glucose (65-105) mg/dL Lactic Acid 1.4 (0.7-2.1) mmol/L Calcium (8.6-10.4) mg/dl Phosphorus (2.5-4.5) mg/dL Magnesium (1.6-2.3) mg/dL Total Bilirubin (0.2-1.3) mg/dL AST (14-36) U/L ALT (9-52) U/L Alkaline Phosphatase (38-126) U/L Total Creatine Kinase 185 H (30-135) U/L CK-MB (Mass) 0.71 (0.0-3.38) ng/mL Troponin I < 0.0120 (0.00-0.120) ng/mL Total Protein (6.3-8.3) g/dL Albumin (3.5-5.0) g/dL Globulin (2.2-3.9) gm/dL Albumin/Globulin Ratio (1.0-2.1) 09/24/18 09/24/18 09/24/18 Range/Units 18:43 18:43 18:19 WBC 4.1 L (4.8-10.8) K/uL RBC 4.34 (3.80-5.20) Mil/uL Hgb 11.9 (11.0-16.0) g/dL Hct 36.8 (34.0-47.0) % MCV 84.7 (81.0-99.0) fL MCH 27.4 (27.0-31.0) pg MCHC 32.3 L (33.0-37.0) g/dL RDW 15.2 H (11.5-14.5) % Plt Count 215 (130-400) K/uL MPV 9.2 (7.2-11.7) fL Neut % (Auto) 83.4 H (50.0-75.0) % Lymph % (Auto) 12.3 L (20.0-40.0) % Alpine % (Auto) 3.5 (0.0-10.0) % Eos % (Auto) 0.2 (0.0-4.0) % Baso % (Auto) 0.6 (0.0-2.0) % Neut # (Auto) 3.4 (1.8-7.0) K/uL Lymph # (Auto) 0.5 L (1.0-4.3) K/uL Alpine # (Auto) 0.1 (0.0-0.8) K/uL Eos # (Auto) 0.0 (0.0-0.7) K/uL Baso # (Auto) 0.0 (0.0-0.2) K/uL Puncture Site pCO2 (35-45) mm/Hg pO2 (80-100) mm/Hg HCO3 (21-28) mmol/L ABG pH (7.35-7.45) ABG Total CO2 (22-28) mmol/L ABG O2 Saturation (95-98) % ABG Base Excess (-2.0-3.0) mmol/L ABG Hemoglobin (11.7-17.4) g/dL ABG Carboxyhemoglobin (0.5-1.5) % POC ABG HHb (Measured) (0.0-5.0) % ABG Methemoglobin (0.0-3.0) % Diaz Test A-a O2 Difference mm/Hg Respiratory Index Hgb O2 Saturation (95.0-98.0) % Vent Mode Mechanical Rate FiO2 % Tidal Volume PEEP Sodium 139 (132-148) mmol/L Potassium 4.0 (3.6-5.2) mmol/L Chloride 104 (98-107) mmol/L Carbon Dioxide 23 (22-30) mmol/L Anion Gap 16 (10-20) BUN 11 (7-17) mg/dL Creatinine 0.6 L (0.7-1.2) mg/dL Est GFR ( Amer) > 60 Est GFR (Non-Af Amer) > 60 POC Glucose (mg/dL) 164 H (65-110) mg/dL Random Glucose 149 H (65-105) mg/dL Lactic Acid (0.7-2.1) mmol/L Calcium 8.4 L (8.6-10.4) mg/dl Phosphorus (2.5-4.5) mg/dL Magnesium 2.0 (1.6-2.3) mg/dL Total Bilirubin 0.5 (0.2-1.3) mg/dL AST 31 (14-36) U/L ALT 21 (9-52) U/L Alkaline Phosphatase 91 (38-126) U/L Total Creatine Kinase (30-135) U/L CK-MB (Mass) (0.0-3.38) ng/mL Troponin I (0.00-0.120) ng/mL Total Protein 8.0 (6.3-8.3) g/dL Albumin 4.7 (3.5-5.0) g/dL Globulin 3.3 (2.2-3.9) gm/dL Albumin/Globulin Ratio 1.4 (1.0-2.1) Laboratory Results - last 24 hr 09/24/18 09/24/18 09/24/18 18:19 18:43 18:43 WBC 4.1 L RBC 4.34 Hgb 11.9 Hct 36.8 MCV 84.7 MCH 27.4 MCHC 32.3 L RDW 15.2 H Plt Count 215 MPV 9.2 Neut % (Auto) 83.4 H Lymph % (Auto) 12.3 L Alpine % (Auto) 3.5 Eos % (Auto) 0.2 Baso % (Auto) 0.6 Neut # (Auto) 3.4 Lymph # (Auto) 0.5 L Alpine # (Auto) 0.1 Eos # (Auto) 0.0 Baso # (Auto) 0.0 Puncture Site pCO2 pO2 HCO3 ABG pH ABG Total CO2 ABG O2 Saturation ABG Base Excess ABG Hemoglobin ABG Carboxyhemoglobin POC ABG HHb (Measured) ABG Methemoglobin Diaz Test A-a O2 Difference Respiratory Index Hgb O2 Saturation Vent Mode Mechanical Rate FiO2 Tidal Volume PEEP Sodium 139 Potassium 4.0 Chloride 104 Carbon Dioxide 23 Anion Gap 16 BUN 11 Creatinine 0.6 L Est GFR ( Amer) > 60 Est GFR (Non-Af Amer) > 60 POC Glucose (mg/dL) 164 H Random Glucose 149 H Lactic Acid Calcium 8.4 L Phosphorus Magnesium 2.0 Total Bilirubin 0.5 AST 31 ALT 21 Alkaline Phosphatase 91 Total Creatine Kinase CK-MB (Mass) Troponin I Total Protein 8.0 Albumin 4.7 Globulin 3.3 Albumin/Globulin Ratio 1.4 09/24/18 09/24/18 09/25/18 21:10 21:10 01:00 WBC RBC Hgb Hct MCV MCH MCHC RDW Plt Count MPV Neut % (Auto) Lymph % (Auto) Alpine % (Auto) Eos % (Auto) Baso % (Auto) Neut # (Auto) Lymph # (Auto) Alpine # (Auto) Eos # (Auto) Baso # (Auto) Puncture Site pCO2 pO2 HCO3 ABG pH ABG Total CO2 ABG O2 Saturation ABG Base Excess ABG Hemoglobin ABG Carboxyhemoglobin POC ABG HHb (Measured) ABG Methemoglobin Diaz Test A-a O2 Difference Respiratory Index Hgb O2 Saturation Vent Mode Mechanical Rate FiO2 Tidal Volume PEEP Sodium Potassium Chloride Carbon Dioxide Anion Gap BUN Creatinine Est GFR ( Amer) Est GFR (Non-Af Amer) POC Glucose (mg/dL) 135 H Random Glucose Lactic Acid 1.4 Calcium Phosphorus Magnesium Total Bilirubin AST ALT Alkaline Phosphatase Total Creatine Kinase 185 H CK-MB (Mass) 0.71 Troponin I < 0.0120 Total Protein Albumin Globulin Albumin/Globulin Ratio 09/25/18 09/25/18 09/25/18 05:40 05:55 05:55 WBC RBC Hgb Hct MCV MCH MCHC RDW Plt Count MPV Neut % (Auto) Lymph % (Auto) Alpine % (Auto) Eos % (Auto) Baso % (Auto) Neut # (Auto) Lymph # (Auto) Alpine # (Auto) Eos # (Auto) Baso # (Auto) Puncture Site Rb pCO2 26 L pO2 156 H HCO3 22.1 ABG pH 7.47 H ABG Total CO2 19.7 L ABG O2 Saturation 99.4 H ABG Base Excess -3.7 L ABG Hemoglobin 10.5 L ABG Carboxyhemoglobin 1.2 POC ABG HHb (Measured) 0.6 ABG Methemoglobin 0.7 Diaz Test Na A-a O2 Difference 97.0 Respiratory Index 0.6 Hgb O2 Saturation 97.5 Vent Mode Prvc Mechanical Rate 20 FiO2 40.0 Tidal Volume 450 PEEP 5 Sodium 139 Potassium 4.0 Chloride 108 H Carbon Dioxide 21 L Anion Gap 14 BUN 8 Creatinine 0.5 L Est GFR ( Amer) > 60 Est GFR (Non-Af Amer) > 60 POC Glucose (mg/dL) Random Glucose 142 H Lactic Acid 1.4 Calcium 8.8 Phosphorus 3.1 Magnesium 2.1 Total Bilirubin 0.3 AST 30 ALT 28 Alkaline Phosphatase 91 Total Creatine Kinase CK-MB (Mass) Troponin I Total Protein 7.2 Albumin 4.4 Globulin 2.9 Albumin/Globulin Ratio 1.5 09/25/18 09/25/18 09/25/18 05:55 07:26 12:13 WBC 3.9 L RBC 4.11 Hgb 11.5 Hct 34.5 MCV 83.9 MCH 27.9 MCHC 33.2 RDW 15.5 H Plt Count 216 MPV 9.4 Neut % (Auto) 78.6 H Lymph % (Auto) 18.0 L Alpine % (Auto) 3.2 Eos % (Auto) 0.0 Baso % (Auto) 0.2 Neut # (Auto) 3.1 Lymph # (Auto) 0.7 L Alpine # (Auto) 0.1 Eos # (Auto) 0.0 Baso # (Auto) 0.0 Puncture Site pCO2 pO2 HCO3 ABG pH ABG Total CO2 ABG O2 Saturation ABG Base Excess ABG Hemoglobin ABG Carboxyhemoglobin POC ABG HHb (Measured) ABG Methemoglobin Diaz Test A-a O2 Difference Respiratory Index Hgb O2 Saturation Vent Mode Mechanical Rate FiO2 Tidal Volume PEEP Sodium Potassium Chloride Carbon Dioxide Anion Gap BUN Creatinine Est GFR ( Amer) Est GFR (Non-Af Amer) POC Glucose (mg/dL) 137 H 112 H Random Glucose Lactic Acid Calcium Phosphorus Magnesium Total Bilirubin AST ALT Alkaline Phosphatase Total Creatine Kinase CK-MB (Mass) Troponin I Total Protein Albumin Globulin Albumin/Globulin Ratio Radiology Impressions: Radiology Impressions Head CT 09/24/18 18:23 IMPRESSION: Postoperative changes status post left frontal craniotomy with cystic encephalomalacia and volume loss noted at the left frontal lobe. No positive mass effect or definite intracranial hemorrhage appreciable. No prior comparison available. Consider follow-up MRI with and without contrast if clinically warranted. Correlation with prior outside imaging can be performed if retrieved as well. Addendum to this report could subsequently be provided. Examination otherwise unremarkable within the intracranial space. Concordant preliminary report from Jin, 09/24/2018, 8:08 p.m.. Chest X-Ray 09/24/18 18:25 IMPRESSION: Superior most lung field excluded from view (right greater than left). The endotracheal tube resides at the fareed and should be repositioned; subsequent chest x-ray performed demonstrate endotracheal tube has already been repositioned terminating approximately 2.3 cm above the fareed. Patchy bibasilar atelectasis or infiltrates. Probable trace pleural effusions. Chest X-Ray 09/25/18 06:32 IMPRESSION: Stable ET tube positioning. Improved aeration bilaterally. Nasogastric tube placed in the interval entering into the left jono abdomen. Tip off the image. Consolidation or pleural effusion bilaterally. No pulmonary vascular congestion. Critical Care Progress Note - Nutrition Nutrition: Nutrition Category Date Time Status NPO Diet [DIET] Diets 09/24/18 Dinner Active Attending/Attestation - Attestation I have personally seen and examined this patient.: Yes I have fully participated in the care of the patient.: Yes I have reviewed all pertinent clinical information: Yes Notes (Text): 09/25/18 15:53 I have seen and examined the patient. Medical records, lab studies, and imaging were reviewed by me and a management plan was formulated on multidisciplinary rounds with resident Dr. Villasenor. I agree with their documented assessment and plan. Patient has had no further seizure episodes. Discussed with Neuro - Dr. Matos, will increase Keppra to 1000mg bid. Alert and tolerating PS trials, will extubate. Critical Care Time 35 minutes. Multi-disciplinary rounds were performed with house staff, nursing, speech therapy, respiratory therapy, pharmacy and nutrition with integrated input from the primary team/attending and other consulting services. The documented time is cumulative and includes review of patient data/exams/labs/chart review and examination of the patient on rounds and throughout the day; time is exclusive of any procedures or teaching time. <Mark Villasenor - Last Filed: 09/25/18 17:38> CCU Subjective - Physician Review Subjective (Free Text): PGY-1 ICU progress note for Dr Mcdonald service Patient seen and examined at bedside. Patient is sedated and intubated at this time. no acute events overnight. ROS unattainable due to patient's current status. PAtient on video eeg at this time. Critical Care Time Spent (in minutes): 35 CCU Objective - Vital Signs / Intake & Output Vital Signs (Last 4 hours): Vital Signs Temp Pulse Resp BP Pulse Ox 09/25/18 12:00 99.2 F 80 31 H 132/77 96 09/25/18 11:24 48 L 136/69 100 09/25/18 11:14 56 L 121/56 L 100 09/25/18 11:00 54 L 100 09/25/18 10:14 55 L 120/57 L 99 09/25/18 10:00 53 L 99 09/25/18 09:14 59 L 114/61 99 Intake and Output (Last 8hrs): Intake & Output 09/24/18 09/25/18 09/25/18 22:59 06:59 14:59 Intake Total 646.6 828.4 707.7 Output Total 650 Balance 646.6 178.4 707.7 Weight 163 lb 2.273 oz 162 lb 11.218 oz Intake: IV 100 180 Intake, IV Amount 646.6 728.4 527.7 Left Antecubital 46.6 128.4 77.7 Left External Jugular 600 300 Right Hand 0 300 450 Output: Gastric Amount 200 Stomach 200 Urine 450 Urine, Voided 450 Urine/Stool Mix 0 Other: # Voids Urine, Voided 2 - Physical Exam Mouth: Positive for: Moist Mucous Membranes Neck: Positive for: Normal Range of Motion Respiratory/Chest: Positive for: Clear to Auscultation. Negative for: Respiratory Distress, Accessory Muscle Use, Wheezes Cardiovascular: Positive for: Regular Rate and Rhythm, Normal S1, S2 Abdomen: Positive for: Normal Bowel Sounds. Negative for: Tenderness, Distention Upper Extremity: Positive for: Normal Inspection. Negative for: Cyanosis, Edema Lower Extremity: Positive for: Normal Inspection. Negative for: Edema Neurological: Positive for: Other (on sedation ) Psychiatric: Negative for: Alert, Oriented x 3 - Medications Active Medications: Active Medications Generic Name Dose Route Start Last Admin Trade Name Enriqueq PRN Reason Stop Dose Admin Sodium Chloride 1,000 mls @ 75 mls/hr 09/24/18 19:15 09/25/18 09:42 Sodium Chloride 0.9% IV Not Given .[id number] LIVIER Cefepime HCl 1 gm in 50 mls @ 100 mls/hr 09/24/18 19:15 09/25/18 07:52 Maxipime Iv 1 Gm Premix IVPB 100 mls/hr Q12H LIVIER Administration Protocol Vancomycin HCl 1 gm/ Sodium 250 mls @ 166.7 mls/hr 09/24/18 19:45 09/24/18 22:17 Chloride IVPB 166.7 mls/hr Q24H LIVIER Administration Protocol Propofol 1,000 mg in 100 mls @ 2.22 mls/hr 09/24/18 22:38 09/25/18 12:04 Diprivan IV 0 mcg/kg/min .Q24H PRN 0 mls/hr TITRATE PER MD ORDER Titration Protocol 5 MCG/KG/MIN Levetiracetam 1,000 mg/ Sodium 110 mls @ 420 mls/hr 09/25/18 13:00 Chloride IVPB Q12H LIVIER Pantoprazole Sodium 40 mg 09/25/18 10:00 09/25/18 12:18 Protonix Inj IVP 40 mg DAILY LIVIER Administration - Patient Studies Lab Studies: Microbiology Studies 09/24/18 22:29 Gram Stain - Final Trachasp Lab Studies 09/25/18 09/25/18 09/25/18 Range/Units 12:13 07:26 05:55 WBC 3.9 L (4.8-10.8) K/uL RBC 4.11 (3.80-5.20) Mil/uL Hgb 11.5 (11.0-16.0) g/dL Hct 34.5 (34.0-47.0) % MCV 83.9 (81.0-99.0) fL MCH 27.9 (27.0-31.0) pg MCHC 33.2 (33.0-37.0) g/dL RDW 15.5 H (11.5-14.5) % Plt Count 216 (130-400) K/uL MPV 9.4 (7.2-11.7) fL Neut % (Auto) 78.6 H (50.0-75.0) % Lymph % (Auto) 18.0 L (20.0-40.0) % Alpine % (Auto) 3.2 (0.0-10.0) % Eos % (Auto) 0.0 (0.0-4.0) % Baso % (Auto) 0.2 (0.0-2.0) % Neut # (Auto) 3.1 (1.8-7.0) K/uL Lymph # (Auto) 0.7 L (1.0-4.3) K/uL Alpine # (Auto) 0.1 (0.0-0.8) K/uL Eos # (Auto) 0.0 (0.0-0.7) K/uL Baso # (Auto) 0.0 (0.0-0.2) K/uL Puncture Site pCO2 (35-45) mm/Hg pO2 (80-100) mm/Hg HCO3 (21-28) mmol/L ABG pH (7.35-7.45) ABG Total CO2 (22-28) mmol/L ABG O2 Saturation (95-98) % ABG Base Excess (-2.0-3.0) mmol/L ABG Hemoglobin (11.7-17.4) g/dL ABG Carboxyhemoglobin (0.5-1.5) % POC ABG HHb (Measured) (0.0-5.0) % ABG Methemoglobin (0.0-3.0) % Diaz Test A-a O2 Difference mm/Hg Respiratory Index Hgb O2 Saturation (95.0-98.0) % Vent Mode Mechanical Rate FiO2 % Tidal Volume PEEP Sodium (132-148) mmol/L Potassium (3.6-5.2) mmol/L Chloride (98-107) mmol/L Carbon Dioxide (22-30) mmol/L Anion Gap (10-20) BUN (7-17) mg/dL Creatinine (0.7-1.2) mg/dL Est GFR ( Amer) Est GFR (Non-Af Amer) POC Glucose (mg/dL) 112 H 137 H (65-110) mg/dL Random Glucose (65-105) mg/dL Lactic Acid (0.7-2.1) mmol/L Calcium (8.6-10.4) mg/dl Phosphorus (2.5-4.5) mg/dL Magnesium (1.6-2.3) mg/dL Total Bilirubin (0.2-1.3) mg/dL AST (14-36) U/L ALT (9-52) U/L Alkaline Phosphatase (38-126) U/L Total Creatine Kinase (30-135) U/L CK-MB (Mass) (0.0-3.38) ng/mL Troponin I (0.00-0.120) ng/mL Total Protein (6.3-8.3) g/dL Albumin (3.5-5.0) g/dL Globulin (2.2-3.9) gm/dL Albumin/Globulin Ratio (1.0-2.1) 09/25/18 09/25/18 09/25/18 Range/Units 05:55 05:55 05:40 WBC (4.8-10.8) K/uL RBC (3.80-5.20) Mil/uL Hgb (11.0-16.0) g/dL Hct (34.0-47.0) % MCV (81.0-99.0) fL MCH (27.0-31.0) pg MCHC (33.0-37.0) g/dL RDW (11.5-14.5) % Plt Count (130-400) K/uL MPV (7.2-11.7) fL Neut % (Auto) (50.0-75.0) % Lymph % (Auto) (20.0-40.0) % Alpine % (Auto) (0.0-10.0) % Eos % (Auto) (0.0-4.0) % Baso % (Auto) (0.0-2.0) % Neut # (Auto) (1.8-7.0) K/uL Lymph # (Auto) (1.0-4.3) K/uL Alpine # (Auto) (0.0-0.8) K/uL Eos # (Auto) (0.0-0.7) K/uL Baso # (Auto) (0.0-0.2) K/uL Puncture Site Rb pCO2 26 L (35-45) mm/Hg pO2 156 H (80-100) mm/Hg HCO3 22.1 (21-28) mmol/L ABG pH 7.47 H (7.35-7.45) ABG Total CO2 19.7 L (22-28) mmol/L ABG O2 Saturation 99.4 H (95-98) % ABG Base Excess -3.7 L (-2.0-3.0) mmol/L ABG Hemoglobin 10.5 L (11.7-17.4) g/dL ABG Carboxyhemoglobin 1.2 (0.5-1.5) % POC ABG HHb (Measured) 0.6 (0.0-5.0) % ABG Methemoglobin 0.7 (0.0-3.0) % Diaz Test Na A-a O2 Difference 97.0 mm/Hg Respiratory Index 0.6 Hgb O2 Saturation 97.5 (95.0-98.0) % Vent Mode Prvc Mechanical Rate 20 FiO2 40.0 % Tidal Volume 450 PEEP 5 Sodium 139 (132-148) mmol/L Potassium 4.0 (3.6-5.2) mmol/L Chloride 108 H (98-107) mmol/L Carbon Dioxide 21 L (22-30) mmol/L Anion Gap 14 (10-20) BUN 8 (7-17) mg/dL Creatinine 0.5 L (0.7-1.2) mg/dL Est GFR ( Amer) > 60 Est GFR (Non-Af Amer) > 60 POC Glucose (mg/dL) (65-110) mg/dL Random Glucose 142 H (65-105) mg/dL Lactic Acid 1.4 (0.7-2.1) mmol/L Calcium 8.8 (8.6-10.4) mg/dl Phosphorus 3.1 (2.5-4.5) mg/dL Magnesium 2.1 (1.6-2.3) mg/dL Total Bilirubin 0.3 (0.2-1.3) mg/dL AST 30 (14-36) U/L ALT 28 (9-52) U/L Alkaline Phosphatase 91 (38-126) U/L Total Creatine Kinase (30-135) U/L CK-MB (Mass) (0.0-3.38) ng/mL Troponin I (0.00-0.120) ng/mL Total Protein 7.2 (6.3-8.3) g/dL Albumin 4.4 (3.5-5.0) g/dL Globulin 2.9 (2.2-3.9) gm/dL Albumin/Globulin Ratio 1.5 (1.0-2.1) 09/25/18 09/24/18 09/24/18 Range/Units 01:00 21:10 21:10 WBC (4.8-10.8) K/uL RBC (3.80-5.20) Mil/uL Hgb (11.0-16.0) g/dL Hct (34.0-47.0) % MCV (81.0-99.0) fL MCH (27.0-31.0) pg MCHC (33.0-37.0) g/dL RDW (11.5-14.5) % Plt Count (130-400) K/uL MPV (7.2-11.7) fL Neut % (Auto) (50.0-75.0) % Lymph % (Auto) (20.0-40.0) % Alpine % (Auto) (0.0-10.0) % Eos % (Auto) (0.0-4.0) % Baso % (Auto) (0.0-2.0) % Neut # (Auto) (1.8-7.0) K/uL Lymph # (Auto) (1.0-4.3) K/uL Alpine # (Auto) (0.0-0.8) K/uL Eos # (Auto) (0.0-0.7) K/uL Baso # (Auto) (0.0-0.2) K/uL Puncture Site pCO2 (35-45) mm/Hg pO2 (80-100) mm/Hg HCO3 (21-28) mmol/L ABG pH (7.35-7.45) ABG Total CO2 (22-28) mmol/L ABG O2 Saturation (95-98) % ABG Base Excess (-2.0-3.0) mmol/L ABG Hemoglobin (11.7-17.4) g/dL ABG Carboxyhemoglobin (0.5-1.5) % POC ABG HHb (Measured) (0.0-5.0) % ABG Methemoglobin (0.0-3.0) % Diaz Test A-a O2 Difference mm/Hg Respiratory Index Hgb O2 Saturation (95.0-98.0) % Vent Mode Mechanical Rate FiO2 % Tidal Volume PEEP Sodium (132-148) mmol/L Potassium (3.6-5.2) mmol/L Chloride (98-107) mmol/L Carbon Dioxide (22-30) mmol/L Anion Gap (10-20) BUN (7-17) mg/dL Creatinine (0.7-1.2) mg/dL Est GFR ( Amer) Est GFR (Non-Af Amer) POC Glucose (mg/dL) 135 H (65-110) mg/dL Random Glucose (65-105) mg/dL Lactic Acid 1.4 (0.7-2.1) mmol/L Calcium (8.6-10.4) mg/dl Phosphorus (2.5-4.5) mg/dL Magnesium (1.6-2.3) mg/dL Total Bilirubin (0.2-1.3) mg/dL AST (14-36) U/L ALT (9-52) U/L Alkaline Phosphatase (38-126) U/L Total Creatine Kinase 185 H (30-135) U/L CK-MB (Mass) 0.71 (0.0-3.38) ng/mL Troponin I < 0.0120 (0.00-0.120) ng/mL Total Protein (6.3-8.3) g/dL Albumin (3.5-5.0) g/dL Globulin (2.2-3.9) gm/dL Albumin/Globulin Ratio (1.0-2.1) 09/24/18 09/24/18 09/24/18 Range/Units 18:43 18:43 18:19 WBC 4.1 L (4.8-10.8) K/uL RBC 4.34 (3.80-5.20) Mil/uL Hgb 11.9 (11.0-16.0) g/dL Hct 36.8 (34.0-47.0) % MCV 84.7 (81.0-99.0) fL MCH 27.4 (27.0-31.0) pg MCHC 32.3 L (33.0-37.0) g/dL RDW 15.2 H (11.5-14.5) % Plt Count 215 (130-400) K/uL MPV 9.2 (7.2-11.7) fL Neut % (Auto) 83.4 H (50.0-75.0) % Lymph % (Auto) 12.3 L (20.0-40.0) % [place] % (Auto) 3.5 (0.0-10.0) % Eos % (Auto) 0.2 (0.0-4.0) % Baso % (Auto) 0.6 (0.0-2.0) % Neut # (Auto) 3.4 (1.8-7.0) K/uL Lymph # (Auto) 0.5 L (1.0-4.3) K/uL [place] # (Auto) 0.1 (0.0-0.8) K/uL Eos # (Auto) 0.0 (0.0-0.7) K/uL Baso # (Auto) 0.0 (0.0-0.2) K/uL Puncture Site pCO2 (35-45) mm/Hg pO2 (80-100) mm/Hg HCO3 (21-28) mmol/L ABG pH (7.35-7.45) ABG Total CO2 (22-28) mmol/L ABG O2 Saturation (95-98) % ABG Base Excess (-2.0-3.0) mmol/L ABG Hemoglobin (11.7-17.4) g/dL ABG Carboxyhemoglobin (0.5-1.5) % POC ABG HHb (Measured) (0.0-5.0) % ABG Methemoglobin (0.0-3.0) % Diaz Test A-a O2 Difference mm/Hg Respiratory Index Hgb O2 Saturation (95.0-98.0) % Vent Mode Mechanical Rate FiO2 % Tidal Volume PEEP Sodium 139 (132-148) mmol/L Potassium 4.0 (3.6-5.2) mmol/L Chloride 104 (98-107) mmol/L Carbon Dioxide 23 (22-30) mmol/L Anion Gap 16 (10-20) BUN 11 (7-17) mg/dL Creatinine 0.6 L (0.7-1.2) mg/dL Est GFR ( Amer) > 60 Est GFR (Non-Af Amer) > 60 POC Glucose (mg/dL) 164 H (65-110) mg/dL Random Glucose 149 H (65-105) mg/dL Lactic Acid (0.7-2.1) mmol/L Calcium 8.4 L (8.6-10.4) mg/dl Phosphorus (2.5-4.5) mg/dL Magnesium 2.0 (1.6-2.3) mg/dL Total Bilirubin 0.5 (0.2-1.3) mg/dL AST 31 (14-36) U/L ALT 21 (9-52) U/L Alkaline Phosphatase 91 (38-126) U/L Total Creatine Kinase (30-135) U/L CK-MB (Mass) (0.0-3.38) ng/mL Troponin I (0.00-0.120) ng/mL Total Protein 8.0 (6.3-8.3) g/dL Albumin 4.7 (3.5-5.0) g/dL Globulin 3.3 (2.2-3.9) gm/dL Albumin/Globulin Ratio 1.4 (1.0-2.1) Laboratory Results - last 24 hr 09/24/18 09/24/18 09/24/18 18:19 18:43 18:43 WBC 4.1 L RBC 4.34 Hgb 11.9 Hct 36.8 MCV 84.7 MCH 27.4 MCHC 32.3 L RDW 15.2 H Plt Count 215 MPV 9.2 Neut % (Auto) 83.4 H Lymph % (Auto) 12.3 L [place] % (Auto) 3.5 Eos % (Auto) 0.2 Baso % (Auto) 0.6 Neut # (Auto) 3.4 Lymph # (Auto) 0.5 L [place] # (Auto) 0.1 Eos # (Auto) 0.0 Baso # (Auto) 0.0 Puncture Site pCO2 pO2 HCO3 ABG pH ABG Total CO2 ABG O2 Saturation ABG Base Excess ABG Hemoglobin ABG Carboxyhemoglobin POC ABG HHb (Measured) ABG Methemoglobin Diaz Test A-a O2 Difference Respiratory Index Hgb O2 Saturation Vent Mode Mechanical Rate FiO2 Tidal Volume PEEP Sodium 139 Potassium 4.0 Chloride 104 Carbon Dioxide 23 Anion Gap 16 BUN 11 Creatinine 0.6 L Est GFR ( Amer) > 60 Est GFR (Non-Af Amer) > 60 POC Glucose (mg/dL) 164 H Random Glucose 149 H Lactic Acid Calcium 8.4 L Phosphorus Magnesium 2.0 Total Bilirubin 0.5 AST 31 ALT 21 Alkaline Phosphatase 91 Total Creatine Kinase CK-MB (Mass) Troponin I Total Protein 8.0 Albumin 4.7 Globulin 3.3 Albumin/Globulin Ratio 1.4 09/24/18 09/24/18 09/25/18 21:10 21:10 01:00 WBC RBC Hgb Hct MCV MCH MCHC RDW Plt Count MPV Neut % (Auto) Lymph % (Auto) [place] % (Auto) Eos % (Auto) Baso % (Auto) Neut # (Auto) Lymph # (Auto) [place] # (Auto) Eos # (Auto) Baso # (Auto) Puncture Site pCO2 pO2 HCO3 ABG pH ABG Total CO2 ABG O2 Saturation ABG Base Excess ABG Hemoglobin ABG Carboxyhemoglobin POC ABG HHb (Measured) ABG Methemoglobin Diaz Test A-a O2 Difference Respiratory Index Hgb O2 Saturation Vent Mode Mechanical Rate FiO2 Tidal Volume PEEP Sodium Potassium Chloride Carbon Dioxide Anion Gap BUN Creatinine Est GFR ( Amer) Est GFR (Non-Af Amer) POC Glucose (mg/dL) 135 H Random Glucose Lactic Acid 1.4 Calcium Phosphorus Magnesium Total Bilirubin AST ALT Alkaline Phosphatase Total Creatine Kinase 185 H CK-MB (Mass) 0.71 Troponin I < 0.0120 Total Protein Albumin Globulin Albumin/Globulin Ratio 09/25/18 09/25/18 09/25/18 05:40 05:55 05:55 WBC RBC Hgb Hct MCV MCH MCHC RDW Plt Count MPV Neut % (Auto) Lymph % (Auto) [place] % (Auto) Eos % (Auto) Baso % (Auto) Neut # (Auto) Lymph # (Auto) [place] # (Auto) Eos # (Auto) Baso # (Auto) Puncture Site Rb pCO2 26 L pO2 156 H HCO3 22.1 ABG pH 7.47 H ABG Total CO2 19.7 L ABG O2 Saturation 99.4 H ABG Base Excess -3.7 L ABG Hemoglobin 10.5 L ABG Carboxyhemoglobin 1.2 POC ABG HHb (Measured) 0.6 ABG Methemoglobin 0.7 Diaz Test Na A-a O2 Difference 97.0 Respiratory Index 0.6 Hgb O2 Saturation 97.5 Vent Mode Prvc Mechanical Rate 20 FiO2 40.0 Tidal Volume 450 PEEP 5 Sodium 139 Potassium 4.0 Chloride 108 H Carbon Dioxide 21 L Anion Gap 14 BUN 8 Creatinine 0.5 L Est GFR ( Amer) > 60 Est GFR (Non-Af Amer) > 60 POC Glucose (mg/dL) Random Glucose 142 H Lactic Acid 1.4 Calcium 8.8 Phosphorus 3.1 Magnesium 2.1 Total Bilirubin 0.3 AST 30 ALT 28 Alkaline Phosphatase 91 Total Creatine Kinase CK-MB (Mass) Troponin I Total Protein 7.2 Albumin 4.4 Globulin 2.9 Albumin/Globulin Ratio 1.5 09/25/18 09/25/18 09/25/18 05:55 07:26 12:13 WBC 3.9 L RBC 4.11 Hgb 11.5 Hct 34.5 MCV 83.9 MCH 27.9 MCHC 33.2 RDW 15.5 H Plt Count 216 MPV 9.4 Neut % (Auto) 78.6 H Lymph % (Auto) 18.0 L [place] % (Auto) 3.2 Eos % (Auto) 0.0 Baso % (Auto) 0.2 Neut # (Auto) 3.1 Lymph # (Auto) 0.7 L [place] # (Auto) 0.1 Eos # (Auto) 0.0 Baso # (Auto) 0.0 Puncture Site pCO2 pO2 HCO3 ABG pH ABG Total CO2 ABG O2 Saturation ABG Base Excess ABG Hemoglobin ABG Carboxyhemoglobin POC ABG HHb (Measured) ABG Methemoglobin Diaz Test A-a O2 Difference Respiratory Index Hgb O2 Saturation Vent Mode Mechanical Rate FiO2 Tidal Volume PEEP Sodium Potassium Chloride Carbon Dioxide Anion Gap BUN Creatinine Est GFR ( Amer) Est GFR (Non-Af Amer) POC Glucose (mg/dL) 137 H 112 H Random Glucose Lactic Acid Calcium Phosphorus Magnesium Total Bilirubin AST ALT Alkaline Phosphatase Total Creatine Kinase CK-MB (Mass) Troponin I Total Protein Albumin Globulin Albumin/Globulin Ratio Radiology Impressions: Radiology Impressions Head CT 09/24/18 18:23 IMPRESSION: Postoperative changes status post left frontal craniotomy with cystic encephalomalacia and volume loss noted at the left frontal lobe. No positive mass effect or definite intracranial hemorrhage appreciable. No prior comparison available. Consider follow-up MRI with and without contrast if clinically warranted. Correlation with prior outside imaging can be performed if retrieved as well. Addendum to this report could subsequently be provided. Examination otherwise unremarkable within the intracranial space. Concordant preliminary report from [facility], 09/24/2018, 8:08 p.m.. Chest X-Ray 09/24/18 18:25 IMPRESSION: Superior most lung field excluded from view (right greater than left). The endotracheal tube resides at the fareed and should be repositioned; subsequent chest x-ray performed demonstrate endotracheal tube has already been repositioned terminating approximately 2.3 cm above the fareed. Patchy bibasilar atelectasis or infiltrates. Probable trace pleural effusions. Chest X-Ray 09/25/18 06:32 IMPRESSION: Stable ET tube positioning. Improved aeration bilaterally. Nasogastric tube placed in the interval entering into the left jono abdomen. Tip off the image. Consolidation or pleural effusion bilaterally. No pulmonary vascular congestion. Fingerstick Blood Sugar Results: 112 Review of Systems - Review of Systems Systems not reviewed;Unavailable: Intubated Critical Care Progress Note - Nutrition Nutrition: Nutrition Category Date Time Status NPO Diet [DIET] Diets 09/24/18 Dinner Active Assessment/Plan - Assessment and Plan (Free Text) Plan: Pt is a 47 year old female with questionable pmhx of brain cancer, brought by EMS for seizures this afternoon, intubated in ED, transferred to ICU for further management of ventilation and sedation with propofol , keppra given, on abx for possible aspiration after tube placement. Keppra increased, CT unremarkable for acute changes, planning for extubation today. Neuro increased Keppra 1000mg Q12H from 750 no seizures reported by overnight staff CT head: no positive mass effect or definite intracrnial hemmorrhage, post op changes s/p left frontal craniotomy with cystic encephalomalacia 24 hour video EEG extubation today swallow eval after extubation - will cont to follow patient's status Neurochecks follow up with Dr Matos- neuro Cardio NEERU negative Monitor vitals Pulm extubation today GI protonix NPO swallow eval after Nephro repeat am labs electrolytes wnl ID Vanco Q24H, Cefepime Q12H Lact blood culture, urine culture - pending Lact - wnl CK - 185 PPX DVT -SCDS, Heparin 5000 Q12H GI - Protonix NS @ [address] Plan discussed [address] Tamara Villasenor, PGY-1 - Date & Time Date: 09/25/18 Time: 09:00
[2018-09-25] MEDS: levETIRAcetam 1,000 MG in Sodium Chloride 0.9% 100 ML IVPB SCH (13:06)
--- NOTE | 2018-09-25 15:31 | CP.PCM.PN ---
Subjective - Date & Time of Evaluation Date of Evaluation: 09/25/18 Time of Evaluation: 12:20 - Subjective Subjective: Pt currently intubated but off sedation, she is alert and awake and able to follow commands. Objective - Vital Signs/Intake and Output Vital Signs (last 24 hours): Temp Pulse Resp BP Pulse Ox 99.2 F 57 L 12 127/56 L 98 09/25/18 12:00 09/25/18 15:14 09/25/18 15:14 09/25/18 15:14 09/25/18 15:14 Intake and Output: 09/25/18 09/25/18 06:59 18:59 Intake Total 1475.0 882.7 Output Total 650 Balance 825.0 882.7 - Medications Medications: Current Medications Heparin Sodium (Porcine) (Heparin) 5,000 units SC Q12 [facility] Sodium Chloride (Sodium Chloride 0.9%) 1,000 mls @ 75 mls/hr IV .[id number] [facility] Last Admin: 09/25/18 09:42 Dose: Not Given Cefepime HCl (Maxipime Iv 1 Gm Premix) 1 gm in 50 mls @ 100 mls/hr IVPB Q12H [facility]; Protocol Last Admin: 09/25/18 07:52 Dose: 100 mls/hr Vancomycin HCl 1 gm/ Sodium (Chloride) 250 mls @ 166.7 mls/hr IVPB Q24H [facility]; Protocol Last Admin: 09/24/18 22:17 Dose: 166.7 mls/hr Propofol (Diprivan) 1,000 mg in 100 mls @ 2.22 mls/hr IV .Q24H PRN; Protocol PRN Reason: TITRATE PER MD ORDER Last Titration: 09/25/18 12:04 Dose: 0 mcg/kg/min, 0 mls/hr Levetiracetam 1,000 mg/ Sodium (Chloride) 110 mls @ 420 mls/hr IVPB Q12H [facility] Last Admin: 09/25/18 13:06 Dose: 420 mls/hr Pantoprazole Sodium (Protonix Inj) 40 mg IVP DAILY ON LICENSE OF [facility] Last Admin: 09/25/18 12:18 Dose: 40 mg - Labs Labs: 09/25/18 05:55 09/25/18 05:55 - Constitutional Appears: Well, Non-toxic, No Acute Distress - Head Exam Head Exam: ATRAUMATIC, NORMAL INSPECTION, NORMOCEPHALIC Additional comments: EEG leads in place - Eye Exam Eye Exam: EOMI, Normal appearance, PERRL Pupil Exam: NORMAL ACCOMODATION, PERRL - ENT Exam Additional comments: ET Tube in place - Respiratory Exam Additional comments: ventilator assisted breath sounds - Cardiovascular Exam Cardiovascular Exam: REGULAR RHYTHM, +S1, +S2. absent: Murmur - GI/Abdominal Exam GI & Abdominal Exam: Soft, Normal Bowel Sounds. absent: Tenderness - Rectal Exam Rectal Exam: Deferred - Extremities Exam Extremities Exam: Full ROM, Normal Capillary Refill, Normal Inspection. absent: Joint Swelling, Pedal Edema - Neurological Exam Neurological Exam: Alert, Awake Neuro motor strength exam: Left Upper Extremity: 5, Right Upper Extremity: 5, Left Lower Extremity: 5, Right Lower Extremity: 5 Additional comments: GCS of 11T - Skin Skin Exam: Dry, Intact, Normal Color, Warm Assessment and Plan - Assessment and Plan (Free Text) Plan: Status epilepticus -CT head: s/p L frontopariental craniotomy w/ underlying postsurgical encephalomalacia and porencephaly. No acute pathology -pt loaded with Keppra (1 gm) in the ED -will increase Keppra to 1000 mg q12h as recommended by neuro -c/w vEEG -Neurology on board with Dr Matos -f/u brain MRI Aspiration PNA -CXR: B/L consolidation or pleural effusion - c/w vanco/cefepime emprically for possible aspiration -f/u BCx, Urine Cx Invasive Mechanical Ventilation -pt required deep sedation due to status epilepticus, hence the need for intubation - vent management as per multiple wire sawyer. PPx, Diet, Disposition -DVT: scds -GI: protonix -Diet: NPO
--- NOTE | 2018-09-25 16:46 | CP.PCM.CON ---
History of Present Illness - History of Present Illness History of Present Illness: 47 yr old woman, originally from [place], who is only Divehi speaking, presented to the hospital last night with several seizures. Miss Aldridge has a history of a brain lesion being removed in [place] (pathology not known), and was not on antiepileptic medications. It is not clear if she had multiple seizures in [place] but family denies this. On presentation to the Er, she was given ativan and propofol was started. VEEG was done and showed left temporal sharp waves, as well as rhythmic slowing in the left temporal lobes. There were no clinical or subclinical seizures noted. She was loaded with Keppra and increased to 1000 mg bid recently. She was also taken off propofol and is now awake and able to speak to me clearly. ROS: no nausea, no vomiting, no diarrhea, no headache. PMH/PSH: S/p left frontal lobe resection. I have asked family to bring reports from [place]. Fh/SH: Has several children. no tobacco, no etoh. All :nkda. Past Patient History - Past Social History Smoking Status: Never Smoked - NEUROLOGICAL Hx Neurological Disorder: Yes Hx Seizures: Yes Other/Comment: brain tumor dx 3 months ago- surgery done as per daughter in [place] - MUSCULOSKELETAL/RHEUMATOLOGICAL Hx Falls: Yes - PSYCHIATRIC Hx Substance Use: No - SURGICAL HISTORY Hx Surgeries: Yes Other/Comment: Brain tumor surgery Meds Allergies/Adverse Reactions: Allergies Allergy/AdvReac Type Severity Reaction Status Date / Time No Known Allergies Allergy Verified 09/24/18 18:17 - Medications Medications: Current Medications Heparin Sodium (Porcine) (Heparin) 5,000 units SC Q12 [facility] Sodium Chloride (Sodium Chloride 0.9%) 1,000 mls @ 75 mls/hr IV .[id number] [facility] Last Admin: 09/25/18 09:42 Dose: Not Given Cefepime HCl (Maxipime Iv 1 Gm Premix) 1 gm in 50 mls @ 100 mls/hr IVPB Q12H [facility]; Protocol Last Admin: 09/25/18 07:52 Dose: 100 mls/hr Vancomycin HCl 1 gm/ Sodium (Chloride) 250 mls @ 166.7 mls/hr IVPB Q24H [facility]; Protocol Last Admin: 09/24/18 22:17 Dose: 166.7 mls/hr Propofol (Diprivan) 1,000 mg in 100 mls @ 2.22 mls/hr IV .Q24H PRN; Protocol PRN Reason: TITRATE PER MD ORDER Last Titration: 09/25/18 12:04 Dose: 0 mcg/kg/min, 0 mls/hr Levetiracetam 1,000 mg/ Sodium (Chloride) 110 mls @ 420 mls/hr IVPB Q12H [facility] Last Admin: 09/25/18 13:06 Dose: 420 mls/hr Pantoprazole Sodium (Protonix Inj) 40 mg IVP DAILY [facility] Last Admin: 09/25/18 12:18 Dose: 40 mg Physical Exam - Constitutional Appears: Well - Head Exam Head Exam: ATRAUMATIC, NORMAL INSPECTION, NORMOCEPHALIC - Eye Exam Eye Exam: EOMI, Normal appearance, PERRL Pupil Exam: NORMAL ACCOMODATION, PERRL - ENT Exam ENT Exam: Mucous Membranes Moist, Normal Exam - Neck Exam Neck exam: Positive for: Normal Inspection - Respiratory Exam Respiratory Exam: Clear to Auscultation Bilateral, NORMAL BREATHING PATTERN - Cardiovascular Exam Cardiovascular Exam: REGULAR RHYTHM - GI/Abdominal Exam GI & Abdominal Exam: Normal Bowel Sounds, Soft. absent: Tenderness - Rectal Exam Rectal Exam: Deferred - Exam Exam: Circumcision, NORMAL INSPECTION External exam: NORMAL EXTERNAL EXAM Speculum exam: NORMAL SPECULUM EXAM Bimanual exam: NORMAL BIMANUAL EXAM - Extremities Exam Extremities exam: Positive for: normal inspection - Back Exam Back exam: NORMAL INSPECTION - Neurological Exam Neurological exam: Alert, CN II-XII Intact, Normal Gait, Oriented x3, Reflexes Normal - Expanded Neurological Exam Expanded Neurological exam: Expressive Aphasia Patient oriented to: person, place, time Speech: Expressive Aphasia Cranial nerves: EOM's Intact: Normal, Facial Palsey w/Forehead Movement: Normal, Facial Palsey w/o Forehead Movement: Normal, Facial Sensation: Normal, Gag Reflex: Normal, Nystagmus: Normal, Tongue Deviation: Normal Cerebellar Function: Finger to Nose: Normal, Heel to Ho: Normal Upper motor neuron: Babinski Sign: Normal Sensory exam: Lower Extremity 2 Point Discrimination: Normal Neuro motor strength exam: Left Upper Extremity: 5, Right Upper Extremity: 5, Left Lower Extremity: 5, Right Lower Extremity: 5 DTR: Achilles Tendon Left: 1+, Achilles Tendon Right: 1+, Bicep Left: 1+, Bicep Right: 1+, Brachioradialis Left: 1+, Brachioradialis Right: 1+, Patellar Left: 1+, Patellar Right: 1+, Tricep Left: 1+, Tricep Right: 1+ Coma Scale Eye Opening: To Voice Coma Scale Verbal: Oriented - Psychiatric Exam Psychiatric exam: Flat Affect, Normal Affect, Normal Mood - Skin Skin Exam: Dry, Intact, Normal Color, Warm Results - Vital Signs Recent Vital Signs: Last Vital Signs Temp 99.2 F 09/25/18 12:00 Pulse 65 09/25/18 14:00 Resp 21 09/25/18 14:00 BP 135/72 09/25/18 13:14 Pulse Ox 97 09/25/18 14:00 - Labs Result Diagrams: 09/25/18 05:55 09/25/18 05:55 Labs: Laboratory Results - last 24 hr 09/24/18 09/24/18 09/24/18 18:19 18:43 18:43 WBC 4.1 L RBC 4.34 Hgb 11.9 Hct 36.8 MCV 84.7 MCH 27.4 MCHC 32.3 L RDW 15.2 H Plt Count 215 MPV 9.2 Neut % (Auto) 83.4 H Lymph % (Auto) 12.3 L [place] % (Auto) 3.5 Eos % (Auto) 0.2 Baso % (Auto) 0.6 Neut # (Auto) 3.4 Lymph # (Auto) 0.5 L [place] # (Auto) 0.1 Eos # (Auto) 0.0 Baso # (Auto) 0.0 Puncture Site pCO2 pO2 HCO3 ABG pH ABG Total CO2 ABG O2 Saturation ABG Base Excess ABG Hemoglobin ABG Carboxyhemoglobin POC ABG HHb (Measured) ABG Methemoglobin Diaz Test A-a O2 Difference Respiratory Index Hgb O2 Saturation Vent Mode Mechanical Rate FiO2 Tidal Volume PEEP Sodium 139 Potassium 4.0 Chloride 104 Carbon Dioxide 23 Anion Gap 16 BUN 11 Creatinine 0.6 L Est GFR ( Amer) > 60 Est GFR (Non-Af Amer) > 60 POC Glucose (mg/dL) 164 H Random Glucose 149 H Lactic Acid Calcium 8.4 L Phosphorus Magnesium 2.0 Total Bilirubin 0.5 AST 31 ALT 21 Alkaline Phosphatase 91 Total Creatine Kinase CK-MB (Mass) Troponin I Total Protein 8.0 Albumin 4.7 Globulin 3.3 Albumin/Globulin Ratio 1.4 09/24/18 09/24/18 09/25/18 21:10 21:10 01:00 WBC RBC Hgb Hct MCV MCH MCHC RDW Plt Count MPV Neut % (Auto) Lymph % (Auto) [place] % (Auto) Eos % (Auto) Baso % (Auto) Neut # (Auto) Lymph # (Auto) [place] # (Auto) Eos # (Auto) Baso # (Auto) Puncture Site pCO2 pO2 HCO3 ABG pH ABG Total CO2 ABG O2 Saturation ABG Base Excess ABG Hemoglobin ABG Carboxyhemoglobin POC ABG HHb (Measured) ABG Methemoglobin Diaz Test A-a O2 Difference Respiratory Index Hgb O2 Saturation Vent Mode Mechanical Rate FiO2 Tidal Volume PEEP Sodium Potassium Chloride Carbon Dioxide Anion Gap BUN Creatinine Est GFR ( Amer) Est GFR (Non-Af Amer) POC Glucose (mg/dL) 135 H Random Glucose Lactic Acid 1.4 Calcium Phosphorus Magnesium Total Bilirubin AST ALT Alkaline Phosphatase Total Creatine Kinase 185 H CK-MB (Mass) 0.71 Troponin I < 0.0120 Total Protein Albumin Globulin Albumin/Globulin Ratio 09/25/18 09/25/18 09/25/18 05:40 05:55 05:55 WBC RBC Hgb Hct MCV MCH MCHC RDW Plt Count MPV Neut % (Auto) Lymph % (Auto) [place] % (Auto) Eos % (Auto) Baso % (Auto) Neut # (Auto) Lymph # (Auto) [place] # (Auto) Eos # (Auto) Baso # (Auto) Puncture Site Rb pCO2 26 L pO2 156 H HCO3 22.1 ABG pH 7.47 H ABG Total CO2 19.7 L ABG O2 Saturation 99.4 H ABG Base Excess -3.7 L ABG Hemoglobin 10.5 L ABG Carboxyhemoglobin 1.2 POC ABG HHb (Measured) 0.6 ABG Methemoglobin 0.7 Diaz Test Na A-a O2 Difference 97.0 Respiratory Index 0.6 Hgb O2 Saturation 97.5 Vent Mode Prvc Mechanical Rate 20 FiO2 40.0 Tidal Volume 450 PEEP 5 Sodium 139 Potassium 4.0 Chloride 108 H Carbon Dioxide 21 L Anion Gap 14 BUN 8 Creatinine 0.5 L Est GFR ( Amer) > 60 Est GFR (Non-Af Amer) > 60 POC Glucose (mg/dL) Random Glucose 142 H Lactic Acid 1.4 Calcium 8.8 Phosphorus 3.1 Magnesium 2.1 Total Bilirubin 0.3 AST 30 ALT 28 Alkaline Phosphatase 91 Total Creatine Kinase CK-MB (Mass) Troponin I Total Protein 7.2 Albumin 4.4 Globulin 2.9 Albumin/Globulin Ratio 1.5 09/25/18 09/25/18 09/25/18 05:55 07:26 12:13 WBC 3.9 L RBC 4.11 Hgb 11.5 Hct 34.5 MCV 83.9 MCH 27.9 MCHC 33.2 RDW 15.5 H Plt Count 216 MPV 9.4 Neut % (Auto) 78.6 H Lymph % (Auto) 18.0 L [place] % (Auto) 3.2 Eos % (Auto) 0.0 Baso % (Auto) 0.2 Neut # (Auto) 3.1 Lymph # (Auto) 0.7 L [place] # (Auto) 0.1 Eos # (Auto) 0.0 Baso # (Auto) 0.0 Puncture Site pCO2 pO2 HCO3 ABG pH ABG Total CO2 ABG O2 Saturation ABG Base Excess ABG Hemoglobin ABG Carboxyhemoglobin POC ABG HHb (Measured) ABG Methemoglobin Diaz Test A-a O2 Difference Respiratory Index Hgb O2 Saturation Vent Mode Mechanical Rate FiO2 Tidal Volume PEEP Sodium Potassium Chloride Carbon Dioxide Anion Gap BUN Creatinine Est GFR ( Amer) Est GFR (Non-Af Amer) POC Glucose (mg/dL) 137 H 112 H Random Glucose Lactic Acid Calcium Phosphorus Magnesium Total Bilirubin AST ALT Alkaline Phosphatase Total Creatine Kinase CK-MB (Mass) Troponin I Total Protein Albumin Globulin Albumin/Globulin Ratio Assessment & Plan - Assessment and Plan (Free Text) Assessment: Ct head: shows left frontal lobe encephalomalacia. 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 The pathology of this lesion is not clear, but we are obtaining records. Plan; 1. Continue video EEG 2. Continue keppra at 1000 mg bid. Our team will follow Thank you Dr. guerrier
[2018-09-26] MEDS: levETIRAcetam 1,000 MG in Sodium Chloride 0.9% 100 ML IVPB SCH ×2 (00:25→13:12)
[2018-09-26 06:18] LABS: HEMOGLOBIN 10.1 g/dL (11.0-16.0); LYMPH # 1.9 K/uL (1.0-4.3); LYMPH % 43.5 % (20.0-40.0); MEAN CELL VOLUME 84.5 fL (81.0-99.0); MEAN CORPUSCULAR HEMOGLOBIN 27.5 pg (27.0-31.0); MEAN CORPUSCULAR HGB CONC 32.5 g/dL (33.0-37.0); MONO # 0.2 K/uL (0.0-0.8); MONO % 5.2 % (0.0-10.0); NEUT # 2.2 K/uL (1.8-7.0); NEUT % 50.3 % (50.0-75.0); RBC 3.68 Mil/uL (3.80-5.20); RED CELL DISTRIBUTION WIDTH 15.4 % (11.5-14.5); WHITE BLOOD COUNT 4.4 K/uL (4.8-10.8)
[2018-09-26] MEDS: Cefepime IV 1 gm in Dextrose 1 GM/50 ML BAG IVPB SCH ×2 (06:30→18:15)
[2018-09-26 06:36] LABS: ALB/GLOB RATIO 1.3 (1.0-2.1); ALBUMIN 3.6 g/dL (3.5-5.0); ALT/SGPT 29 U/L (9-52); AST/SGOT 38 U/L (14-36); BLOOD UREA NITROGEN 14 mg/dL (7-17); CALCIUM 8.2 mg/dl (8.6-10.4); GFR NON-AFRICAN AMERICAN > 60
[2018-09-26] MEDS: Sodium Chloride 0.9% 1,000 ML IV SCH (11:01)
--- NOTE | 2018-09-26 11:54 | CP.PCM.PN ---
Subjective - Date & Time of Evaluation Date of Evaluation: 09/26/18 Time of Evaluation: 11:30 - Subjective Subjective: Patient is currently getting a video EEG at this moment Reviewed previous documentation Patient was extubated yesterday and did well overnight She has been on Keppra 1000 PO BID As mentioned previously she has a history of a left frontal lobe [place] country and came in to the hospital on the night of 07/25 due to mult iple seizure. Mentioned previously is that she was not on seizure medications in the past. Objective - Vital Signs/Intake and Output Vital Signs (last 24 hours): Temp Pulse Resp BP Pulse Ox 98.2 F 75 14 133/70 100 09/26/18 08:00 09/26/18 11:00 09/26/18 11:00 09/26/18 10:32 09/26/18 11:00 Intake and Output: 09/26/18 09/26/18 06:59 18:59 Intake Total 1075 625 Output Total 600 0 Balance 475 625 - Medications Medications: Current Medications Heparin Sodium (Porcine) (Heparin) 5,000 units SC Q12 [facility] Last Admin: 09/26/18 09:55 Dose: 5,000 units Sodium Chloride (Sodium Chloride 0.9%) 1,000 mls @ 75 mls/hr IV .[id number] [facility] Last Admin: 09/26/18 11:01 Dose: 75 mls/hr Cefepime HCl (Maxipime Iv 1 Gm Premix) 1 gm in 50 mls @ 100 mls/hr IVPB Q12H [facility]; Protocol Last Admin: 09/26/18 06:30 Dose: 100 mls/hr Vancomycin HCl 1 gm/ Sodium (Chloride) 250 mls @ 166.7 mls/hr IVPB Q24H [facility]; Protocol Last Admin: 09/25/18 20:15 Dose: 166.7 mls/hr Propofol (Diprivan) 1,000 mg in 100 mls @ 2.22 mls/hr IV .Q24H PRN; Protocol PRN Reason: TITRATE PER MD ORDER Last Titration: 09/25/18 12:04 Dose: 0 mcg/kg/min, 0 mls/hr Levetiracetam 1,000 mg/ Sodium (Chloride) 110 mls @ 420 mls/hr IVPB Q12H [facility] Last Admin: 09/26/18 00:25 Dose: 420 mls/hr Pantoprazole Sodium (Protonix Inj) 40 mg IVP DAILY [facility] Last Admin: 09/26/18 09:55 Dose: 40 mg - Labs Labs: 09/26/18 06:07 09/26/18 06:07 Assessment and Plan - Assessment and Plan (Free Text) Assessment: Status epilepticus 09/26: Patient on continuous video EEG monitoring. Currently on Keppar PO BID There is a pending MRI ordered. CT head: s/p L frontopariental craniotomy w/ underlying postsurgical encephalomalacia and porencephaly. No acute pathology Patient had load of Keppra (1 gm) in the ED Aspiration PNA 09/26: Currently WBC is ok and afebrile. The cultures at this moment are negaitve. On Cefepime and Vancomycin at this moment. CXR: B/L consolidation or pleural effusion Invasive Mechanical Ventilation 09/26: Patient was extubated yesterday afternoon. Continue to monitor at this time. PPx, Diet, Disposition -DVT: scds -GI: protonix -Diet: NPO
[2018-09-26 15:51] LABS: BARBITURATES, UR NEGATIVE (NEGATIVE); BENZODIAZEPINES, UR NEGATIVE (NEGATIVE); OPIATES, UR NEGATIVE (NEGATIVE); PHENCYCLIDINE, UR NEGATIVE (NEGATIVE)
[2018-09-26] MEDS: Promethazine DM 6.25 mg-15 mg/5 ml Syrup PO PRN (18:14)
--- NOTE | 2018-09-26 20:18 | CP.PCM.PN ---
Subjective - Date & Time of Evaluation Date of Evaluation: 09/26/18 Time of Evaluation: 12:30 - Subjective Subjective: MIss Aldridge is awake and responding well, and has no complaints. EEG does not show any seizures. THere are no clinical seizures noted. ROS: no headache, no nausea, no vomiting. Objective - Vital Signs/Intake and Output Vital Signs (last 24 hours): Temp Pulse Resp BP Pulse Ox 97.6 F 76 17 122/65 100 09/26/18 16:00 09/26/18 19:00 09/26/18 19:00 09/26/18 18:32 09/26/18 14:00 Intake and Output: 09/26/18 09/27/18 18:59 06:59 Intake Total 1525 50 Output Total 1950 Balance -425 50 - Medications Medications: Current Medications Heparin Sodium (Porcine) (Heparin) 5,000 units SC Q12 [facility] Last Admin: 09/26/18 09:55 Dose: 5,000 units Sodium Chloride (Sodium Chloride 0.9%) 1,000 mls @ 75 mls/hr IV .[id number] [facility] Last Admin: 09/26/18 11:01 Dose: 75 mls/hr Cefepime HCl (Maxipime Iv 1 Gm Premix) 1 gm in 50 mls @ 100 mls/hr IVPB Q12H [facility]; Protocol Last Admin: 09/26/18 18:15 Dose: 100 mls/hr Vancomycin HCl 1 gm/ Sodium (Chloride) 250 mls @ 166.7 mls/hr IVPB Q24H [facility]; Protocol Last Admin: 09/25/18 20:15 Dose: 166.7 mls/hr Levetiracetam 1,000 mg/ Sodium (Chloride) 110 mls @ 420 mls/hr IVPB Q12H [facility] Last Admin: 09/26/18 13:12 Dose: 420 mls/hr Pantoprazole Sodium (Protonix Inj) 40 mg IVP DAILY [facility] Last Admin: 09/26/18 09:55 Dose: 40 mg Promethazine HCl/Dextromethorphan (Phenergan Dm Syrup) 5 ml PO Q6H PRN PRN Reason: Cough Last Admin: 09/26/18 18:14 Dose: 5 ml - Labs Labs: 09/26/18 06:07 09/26/18 06:07 - Constitutional Appears: Well - Rectal Exam Rectal Exam: Deferred - Neurological Exam Neurological Exam: Alert, Awake, CN II-XII Intact, Normal Gait, Oriented x3 Neuro motor strength exam: Left Upper Extremity: 5, Right Upper Extremity: 5, Left Lower Extremity: 5, Right Lower Extremity: 5 Assessment and Plan - Assessment and Plan (Free Text) Assessment: 47 yr old woman who has localization related epilepsy, 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 Plan; 1. Continue keppra at 1000 mg bid 2. Discontinue EEG Thank you Dr Matos Neurology
[2018-09-27] MEDS: Promethazine DM 6.25 mg-15 mg/5 ml Syrup PO PRN ×2 (00:14→06:27)
[2018-09-27] MEDS: levETIRAcetam 1,000 MG in Sodium Chloride 0.9% 100 ML IVPB SCH (00:15)
[2018-09-27] MEDS: Sodium Chloride 0.9% 1,000 ML IV SCH ×2 (00:30→17:34)
[2018-09-27 06:08] LABS: HEMOGLOBIN 10.8 g/dL (11.0-16.0); MEAN CELL VOLUME 84.3 fL (81.0-99.0); MEAN CORPUSCULAR HEMOGLOBIN 27.5 pg (27.0-31.0); MEAN CORPUSCULAR HGB CONC 32.6 g/dL (33.0-37.0); RBC 3.91 Mil/uL (3.80-5.20); RED CELL DISTRIBUTION WIDTH 15.3 % (11.5-14.5); WHITE BLOOD COUNT 3.9 K/uL (4.8-10.8)
[2018-09-27 06:21] LABS: ALB/GLOB RATIO 1.3 (1.0-2.1); ALBUMIN 3.7 g/dL (3.5-5.0); ALT/SGPT 39 U/L (9-52); AST/SGOT 41 U/L (14-36); BLOOD UREA NITROGEN 9 mg/dL (7-17); CALCIUM 8.2 mg/dl (8.6-10.4); GFR NON-AFRICAN AMERICAN > 60
[2018-09-27] MEDS: Cefepime IV 1 gm in Dextrose 1 GM/50 ML BAG IVPB SCH ×2 (06:26→18:16)
--- NOTE | 2018-09-27 13:20 | CP.PCM.PN ---
Subjective - Date & Time of Evaluation Date of Evaluation: 09/27/18 Time of Evaluation: 13:00 - Subjective Subjective: Patient did well overnight. She did not have any new problems or concerns. The patient remains in the video EEG monitoring. She also remains on the IV Keppra as well The patient's family member is present at bedside - they explain they have the reports from patient's home country - however they are all in [place] and are trying to get a translation on them Otherwise patient reports doing well. Objective - Vital Signs/Intake and Output Vital Signs (last 24 hours): Temp Pulse Resp BP Pulse Ox 98.8 F 66 12 104/57 L 100 09/27/18 09:08 09/27/18 11:00 09/27/18 11:00 09/27/18 10:32 09/26/18 14:00 Intake and Output: 09/27/18 09/27/18 06:59 18:59 Intake Total 1270 520 Output Total 500 Balance 1270 20 - Medications Medications: Current Medications Heparin Sodium (Porcine) (Heparin) 5,000 units SC Q12 [facility] Last Admin: 09/27/18 10:11 Dose: 5,000 units Sodium Chloride (Sodium Chloride 0.9%) 1,000 mls @ 75 mls/hr IV .[id number] [facility] Last Admin: 09/27/18 00:30 Dose: Not Given Cefepime HCl (Maxipime Iv 1 Gm Premix) 1 gm in 50 mls @ 100 mls/hr IVPB Q12H [facility]; Protocol Last Admin: 09/27/18 06:26 Dose: 100 mls/hr Vancomycin HCl 1 gm/ Sodium (Chloride) 250 mls @ 166.7 mls/hr IVPB Q24H [facility]; Protocol Last Admin: 09/26/18 20:00 Dose: 166.7 mls/hr Levetiracetam 750 mg/ Sodium (Chloride) 107.5 mls @ 420 mls/hr IVPB Q12H [facility] Pantoprazole Sodium (Protonix Inj) 40 mg IVP DAILY [facility] Last Admin: 09/27/18 10:11 Dose: 40 mg Promethazine HCl/Dextromethorphan (Phenergan Dm Syrup) 5 ml PO Q6H PRN PRN Reason: Cough Last Admin: 09/27/18 06:27 Dose: 5 ml - Labs Labs: 09/27/18 06:04 09/27/18 06:04 - Constitutional Appears: Well, Non-toxic, No Acute Distress - Head Exam Head Exam: NORMAL INSPECTION, NORMOCEPHALIC - Eye Exam Eye Exam: EOMI, Normal appearance, PERRL - Respiratory Exam Respiratory Exam: Clear to Ausculation Bilateral, NORMAL BREATHING PATTERN - Cardiovascular Exam Cardiovascular Exam: REGULAR RHYTHM - GI/Abdominal Exam GI & Abdominal Exam: Soft, Normal Bowel Sounds. absent: Guarding, Rigid, Tenderness - Neurological Exam Neurological Exam: Alert, Awake, CN II-XII Intact, Oriented x3 Neuro motor strength exam: Left Upper Extremity: 5, Right Upper Extremity: 5, Left Lower Extremity: 5, Right Lower Extremity: 5 - Psychiatric Exam Psychiatric exam: Normal Affect, Normal Mood - Skin Skin Exam: Normal Color, Warm Assessment and Plan - Assessment and Plan (Free Text) Assessment: Status epilepticus 09/27: Doing well, remains on video EEG monitoring. Family says they have information with reguards to the surgery in her home country. However they are all in [place] 09/26: Patient on continuous video EEG monitoring. Currently on Keppar PO BID CT head: s/p L frontopariental craniotomy w/ underlying postsurgical encephalomalacia and porencephaly. No acute pathology Patient had load of Keppra (1 gm) in the ED Aspiration PNA 09/26: Currently WBC is ok and afebrile. The cultures at this moment are negaitve. On Cefepime and Vancomycin at this moment. CXR: B/L consolidation or pleural effusion Invasive Mechanical Ventilation 09/27: Again doing well on room air 09/26: Patient was extubated yesterday afternoon. Continue to monitor at this time. PPx, Diet, Disposition -DVT: scds -GI: protonix
[2018-09-27 23:59] VITALS: O2SAT 97
[2018-09-28 06:13] LABS: BASO % 0.6 % (0.0-2.0); EOS # 0.1 K/uL (0.0-0.7); EOS % 1.4 % (0.0-4.0); HEMOGLOBIN 10.9 g/dL (11.0-16.0); LYMPH # 1.7 K/uL (1.0-4.3); LYMPH % 43.4 % (20.0-40.0); MEAN CELL VOLUME 84.4 fL (81.0-99.0); MEAN CORPUSCULAR HEMOGLOBIN 27.5 pg (27.0-31.0); MEAN CORPUSCULAR HGB CONC 32.6 g/dL (33.0-37.0); MEAN PLATELET VOLUME 9.4 fL (7.2-11.7); MONO # 0.3 K/uL (0.0-0.8); MONO % 8.1 % (0.0-10.0); NEUT # 1.8 K/uL (1.8-7.0); NEUT % 46.5 % (50.0-75.0); RBC 3.95 Mil/uL (3.80-5.20); RED CELL DISTRIBUTION WIDTH 14.9 % (11.5-14.5); WHITE BLOOD COUNT 3.9 K/uL (4.8-10.8)
[2018-09-28 06:32] LABS: ALB/GLOB RATIO 1.3 (1.0-2.1); ALBUMIN 3.7 g/dL (3.5-5.0); ALT/SGPT 47 U/L (9-52); AST/SGOT 28 U/L (14-36); BLOOD UREA NITROGEN 7 mg/dL (7-17); CALCIUM 8.3 mg/dl (8.6-10.4); GFR NON-AFRICAN AMERICAN > 60
[2018-09-28] MEDS ORDERED: Potassium Chloride 20 mEq/15 ml LIQ UD PO STA (09:53)
[2018-09-28] MEDS: Promethazine DM 6.25 mg-15 mg/5 ml Syrup PO PRN (09:56)
--- NOTE | 2018-09-28 11:05 | CP.PCM.PN ---
<Anthony Kinney - Last Filed: 09/28/18 18:15> Subjective - Date & Time of Evaluation Date of Evaluation: 09/28/18 Time of Evaluation: 11:05 - Subjective Subjective: Neurology Progress note for Dr. Matos Patient seen and examined at bedside. Czech Bengali freelance interpreter/translator used. She states she has not had any recent seizures overnight or today. She denies headache, lightheadedness, dizziness, numbness, tingling, confusion, changes in vision or hearing. She states she is not in any pain currently. Objective - Vital Signs/Intake and Output Vital Signs (last 24 hours): Temp Pulse Resp BP Pulse Ox 98.6 F 73 15 126/77 97 09/28/18 08:00 09/28/18 08:00 09/28/18 08:00 09/28/18 08:00 09/28/18 04:00 Intake and Output: 09/28/18 09/28/18 06:59 18:59 Intake Total 1170 85 Output Total 600 Balance 570 85 - Medications Medications: Current Medications Heparin Sodium (Porcine) (Heparin) 5,000 units SC Q12 [facility] Last Admin: 09/28/18 09:54 Dose: 5,000 units Levetiracetam 750 mg/ Sodium (Chloride) 107.5 mls @ 420 mls/hr IVPB Q12H [facility] Last Admin: 09/28/18 06:08 Dose: 420 mls/hr Pantoprazole Sodium (Protonix Ec Tab) 20 mg PO DAILY [facility] Promethazine HCl/Dextromethorphan (Phenergan Dm Syrup) 5 ml PO Q6H PRN PRN Reason: Cough Last Admin: 09/28/18 09:56 Dose: 5 ml - Labs Labs: 09/28/18 06:07 09/28/18 06:05 - Constitutional Appears: Well, No Acute Distress - Head Exam Head Exam: ATRAUMATIC, NORMOCEPHALIC - Eye Exam Eye Exam: EOMI, PERRL Pupil Exam: PERRL - ENT Exam ENT Exam: Mucous Membranes Moist - Neck Exam Neck Exam: Full ROM - Respiratory Exam Respiratory Exam: Clear to Ausculation Bilateral, NORMAL BREATHING PATTERN. absent: Rhonchi, Wheezes - Cardiovascular Exam Cardiovascular Exam: REGULAR RHYTHM, +S1, +S2. absent: Gallop, Rubs, Murmur - GI/Abdominal Exam GI & Abdominal Exam: Soft, Normal Bowel Sounds - Neurological Exam Neurological Exam: Alert, Awake, CN II-XII Intact, Normal Gait, Oriented x3, Reflexes Normal Neuro motor strength exam: Left Upper Extremity: 5, Right Upper Extremity: 5, Left Lower Extremity: 5, Right Lower Extremity: 5 Additional comments: Negative Romberg's No pronator drift Sensation intact in upper and lower extremities bilaterally Negative Max's Negative Babinski - Psychiatric Exam Psychiatric exam: Normal Affect, Normal Mood - Skin Skin Exam: Dry, Intact, Warm Assessment and Plan - Assessment and Plan (Free Text) Plan: Localization related epilepsy, s/p left frontal lobe resection secondary to Grade 1 Left frontal meningioma Patient may be discharged home with Keppra 750mg PO BID Follow up with Dr. Matos outpatient in 1 month. Review of records from family reveal that patient had Grade 1 left frontal meningioma Case discussed with Dr. Carlo Kinney, PGY1 <Tadeo Matos - Last Filed: 09/28/18 21:43> Objective - Vital Signs/Intake and Output Vital Signs (last 24 hours): Temp Pulse Resp BP Pulse Ox 97.4 F L 67 15 134/80 97 09/28/18 15:48 09/28/18 15:48 09/28/18 15:48 09/28/18 15:48 09/28/18 04:00 Intake and Output: 09/28/18 09/29/18 18:59 06:59 Intake Total 445 Output Total 250 Balance 195 - Labs Labs: 09/28/18 06:07 09/28/18 06:05 Assessment and Plan - Assessment and Plan (Free Text) Plan: I examined the patient independently and formulated the assessment and plan All medical record entries made by the Resident were at my direction and personally dictated by me. I have reviewed the chart and agree that the record accurately reflects my personal performance of the history, physical exam, medical decision making, and the department course for this patient. I have also personally directed, reviewed, and agree with the discharge instructions and disposition. Miss Aldridge is on Keppra 750 bid and tolerating well with no seizures and is ready to be discharged. She will follow up with me inone month. THank you Dr. Matos Neurology
[2018-09-28 15:50] VITALS: BP 134/80; PULSE 67; RESP 15; TEMP 97.4
--- NOTE | 2018-09-28 20:08 | CP.PCM.DIS ---
<Jae Snow - Last Filed: 09/28/18 23:07> Provider - Provider Date of Admission: 09/24/18 19:20 Attending physician: Bertrand Friend DO Consults: 09/24/18 19:11 Neurology Consult Stat Comment: Consulting Provider: Dinh Gutierrez Consulting Physician: Dinh Gutierrez Reason for Consult: brain mass s/p ?surgery, with seizures on keppra Time Spent in preparation of Discharge (in minutes): 45 Diagnosis - Discharge Diagnosis (1) Seizure Status: Acute Hospital Course - Lab Results Lab Results: Micro Results 09/24/18 19:00 Blood-Venous Blood Culture - Preliminary NO GROWTH AFTER 4 DAYS 09/24/18 18:30 Blood-Venous Blood Culture - Preliminary NO GROWTH AFTER 4 DAYS 09/24/18 22:29 Trachasp Gram Stain - Final 09/24/18 22:29 Trachasp Sputum Culture - Final NORMAL ORAL ANAHY 09/24/18 21:10 Nose MRSA Culture (Admit) - Final MRSA NOT DETECTED Most Recent Lab Values WBC 3.9 K/uL (4.8-10.8) L 09/28/18 06:07 RBC 3.95 Mil/uL (3.80-5.20) 09/28/18 06:07 Hgb 10.9 g/dL (11.0-16.0) L 09/28/18 06:07 Hct 33.3 % (34.0-47.0) L 09/28/18 06:07 MCV 84.4 fL (81.0-99.0) 09/28/18 06:07 MCH 27.5 pg (27.0-31.0) 09/28/18 06:07 MCHC 32.6 g/dL (33.0-37.0) L 09/28/18 06:07 RDW 14.9 % (11.5-14.5) H 09/28/18 06:07 Plt Count 224 K/uL (130-400) 09/28/18 06:07 MPV 9.4 fL (7.2-11.7) 09/28/18 06:07 Neut % (Auto) 46.5 % (50.0-75.0) L 09/28/18 06:07 Lymph % (Auto) 43.4 % (20.0-40.0) H 09/28/18 06:07 [place] % (Auto) 8.1 % (0.0-10.0) 09/28/18 06:07 Eos % (Auto) 1.4 % (0.0-4.0) 09/28/18 06:07 Baso % (Auto) 0.6 % (0.0-2.0) 09/28/18 06:07 Neut # (Auto) 1.8 K/uL (1.8-7.0) 09/28/18 06:07 Lymph # (Auto) 1.7 K/uL (1.0-4.3) 09/28/18 06:07 [place] # (Auto) 0.3 K/uL (0.0-0.8) 09/28/18 06:07 Eos # (Auto) 0.1 K/uL (0.0-0.7) 09/28/18 06:07 Baso # (Auto) 0.0 K/uL (0.0-0.2) 09/28/18 06:07 Puncture Site Rb 09/25/18 05:40 pCO2 26 mm/Hg (35-45) L 09/25/18 05:40 pO2 156 mm/Hg (80-100) H 09/25/18 05:40 HCO3 22.1 mmol/L (21-28) 09/25/18 05:40 ABG pH 7.47 (7.35-7.45) H 09/25/18 05:40 ABG Total CO2 19.7 mmol/L (22-28) L 09/25/18 05:40 ABG O2 Saturation 99.4 % (95-98) H 09/25/18 05:40 ABG Base Excess -3.7 mmol/L (-2.0-3.0) L 09/25/18 05:40 ABG Hemoglobin 10.5 g/dL (11.7-17.4) L 09/25/18 05:40 ABG Carboxyhemoglobin 1.2 % (0.5-1.5) 09/25/18 05:40 POC ABG HHb (Measured) 0.6 % (0.0-5.0) 09/25/18 05:40 ABG Methemoglobin 0.7 % (0.0-3.0) 09/25/18 05:40 Diaz Test Na 09/25/18 05:40 A-a O2 Difference 97.0 mm/Hg 09/25/18 05:40 Respiratory Index 0.6 09/25/18 05:40 Hgb O2 Saturation 97.5 % (95.0-98.0) 09/25/18 05:40 Vent Mode Prvc 09/25/18 05:40 Mechanical Rate 20 09/25/18 05:40 FiO2 40.0 % 09/25/18 05:40 Tidal Volume 450 09/25/18 05:40 PEEP 5 09/25/18 05:40 Sodium 137 mmol/L (132-148) 09/28/18 06:05 Potassium 3.4 mmol/L (3.6-5.2) L 09/28/18 06:05 Chloride 107 mmol/L (98-107) 09/28/18 06:05 Carbon Dioxide 22 mmol/L (22-30) 09/28/18 06:05 Anion Gap 12 (10-20) 09/28/18 06:05 BUN 7 mg/dL (7-17) 09/28/18 06:05 Creatinine 0.5 mg/dL (0.7-1.2) L 09/28/18 06:05 Est GFR ( Amer) > 60 09/28/18 06:05 Est GFR (Non-Af Amer) > 60 09/28/18 06:05 POC Glucose (mg/dL) 108 mg/dL (65-110) 09/26/18 12:39 Random Glucose 94 mg/dL (65-105) 09/28/18 06:05 Lactic Acid 1.4 mmol/L (0.7-2.1) 09/25/18 05:55 Calcium 8.3 mg/dl (8.6-10.4) L 09/28/18 06:05 Phosphorus 3.1 mg/dL (2.5-4.5) 09/28/18 06:05 Magnesium 1.9 mg/dL (1.6-2.3) 09/28/18 06:05 Total Bilirubin 0.5 mg/dL (0.2-1.3) 09/28/18 06:05 AST 28 U/L (14-36) 09/28/18 06:05 ALT 47 U/L (9-52) 09/28/18 06:05 Alkaline Phosphatase 84 U/L (38-126) 09/28/18 06:05 Total Creatine Kinase 185 U/L (30-135) H 09/24/18 21:10 CK-MB (Mass) 0.71 ng/mL (0.0-3.38) 09/24/18 21:10 Troponin I < 0.0120 ng/mL (0.00-0.120) 09/24/18 21:10 Total Protein 6.5 g/dL (6.3-8.3) 09/28/18 06:05 Albumin 3.7 g/dL (3.5-5.0) 09/28/18 06:05 Globulin 2.8 gm/dL (2.2-3.9) 09/28/18 06:05 Albumin/Globulin Ratio 1.3 (1.0-2.1) 09/28/18 06:05 Urine Opiates Screen Negative (NEGATIVE) 09/26/18 15:20 Urine Methadone Screen Negative (NEGATIVE) 09/26/18 15:20 Ur Barbiturates Screen Negative (NEGATIVE) 09/26/18 15:20 Ur Phencyclidine Scrn Negative (NEGATIVE) 09/26/18 15:20 Ur Amphetamines Screen Negative (NEGATIVE) 09/26/18 15:20 U Benzodiazepines Scrn Negative (NEGATIVE) 09/26/18 15:20 U Oth Cocaine Metabols Negative (NEGATIVE) 09/26/18 15:20 U Cannabinoids Screen Negative (NEGATIVE) 09/26/18 15:20 - Hospital Course Hospital Course: PGY-[address] and Physical [address]. 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 Patient had post-ictal status of ~13 minutes and then upon arrival to ER had another witnessed seizure. Per family, patient takes Keppra 500mg BID and they confirm she took the first dose today. Patient was given Ativan 4 mg , Versed 5 mg on the field. Also given Ativan 4 mg and Decadron 10 mg IV in ED with no relief. Per Neurology recs, loading dose of Keppra was then given, patient placed on propofol drip and intubated. On current exam, patient responsive to painful stimuli, seen making minor spontaneous gestures with LEs but not awake or oriented. 12 pt ROS unattainable due to clinical condition. PMHx: CVA, gliobastoma multiforme of R frontal lobe PSHx: surgical resection of brain tumor (3 months ago) Allergies: NKDA Home Meds: as per chart Family Hx: unknown Social Hx: unknown Pt seizures controlled with Keppra 750mg IV q12, d/c home on keppra po BID, pt to follow up w/ Dr Matos in clinic and [facility] Discharge Exam - Head Exam Head Exam: ATRAUMATIC, NORMOCEPHALIC - Eye Exam Eye Exam: EOMI, Normal appearance - ENT Exam ENT Exam: Mucous Membranes Dry - Neck Exam Neck exam: Full Rom - Respiratory Exam Respiratory Exam: Clear to PA & Lateral, NORMAL BREATHING PATTERN - Extremities Exam Extremities exam: full ROM, pedal pulses present - Neurological Exam Neurological exam: Alert, CN II-XII Intact, Oriented x3, Reflexes Normal - Psychiatric Exam Psychiatric exam: Normal Mood Discharge Plan - Discharge Medications Prescriptions: Levetiracetam [Keppra] 750 mg PO BID #60 tablet - Follow Up Plan Condition: SERIOUS Disposition: HOME/ ROUTINE Instructions: Seizures, Adult (DC), Levetiracetam Additional Instructions: Please follow up with [facility] Neurology Clinic Location Information [facility] [id number] [place] [address] Please Follow up with Dr Matos Neurologist within one month Please take Keppra 750mg at 8am and 8pm daily Referrals: [facility] [Provider Group] Tadeo Matos MD [Staff Provider] - <Shivam Sheehan - Last Filed: 09/30/18 20:05> Provider - Provider Date of Admission: 09/24/18 19:20 Attending physician: Bertrand Friend DO Consults: 09/24/18 19:11 Neurology Consult Stat Comment: Consulting Provider: Dinh Gutierrez Consulting Physician: Dinh Gutierrez Reason for Consult: brain mass s/p ?surgery, with seizures on keppra Hospital Course - Lab Results Lab Results: Micro Results 09/28/18 16:53 Naris MRSA Culture - Final MRSA NOT DETECTED 09/24/18 19:00 Blood-Venous Blood Culture - Final NO GROWTH AFTER 5 DAYS 09/24/18 19:00 Blood-Venous Gram Stain - Final TEST NOT PERFORMED 09/24/18 18:30 Blood-Venous Blood Culture - Final NO GROWTH AFTER 5 DAYS 09/24/18 18:30 Blood-Venous Gram Stain - Final TEST NOT PERFORMED 09/24/18 22:29 Trachasp Gram Stain - Final 09/24/18 22:29 Trachasp Sputum Culture - Final NORMAL ORAL ANAHY 09/24/18 21:10 Nose MRSA Culture (Admit) - Final MRSA NOT DETECTED Most Recent Lab Values WBC 3.9 K/uL (4.8-10.8) L 09/28/18 06:07 RBC 3.95 Mil/uL (3.80-5.20) 09/28/18 06:07 Hgb 10.9 g/dL (11.0-16.0) L 09/28/18 06:07 Hct 33.3 % (34.0-47.0) L 09/28/18 06:07 MCV 84.4 fL (81.0-99.0) 09/28/18 06:07 MCH 27.5 pg (27.0-31.0) 09/28/18 06:07 MCHC 32.6 g/dL (33.0-37.0) L 09/28/18 06:07 RDW 14.9 % (11.5-14.5) H 09/28/18 06:07 Plt Count 224 K/uL (130-400) 09/28/18 06:07 MPV 9.4 fL (7.2-11.7) 09/28/18 06:07 Neut % (Auto) 46.5 % (50.0-75.0) L 09/28/18 06:07 Lymph % (Auto) 43.4 % (20.0-40.0) H 09/28/18 06:07 [place] % (Auto) 8.1 % (0.0-10.0) 09/28/18 06:07 Eos % (Auto) 1.4 % (0.0-4.0) 09/28/18 06:07 Baso % (Auto) 0.6 % (0.0-2.0) 09/28/18 06:07 Neut # (Auto) 1.8 K/uL (1.8-7.0) 09/28/18 06:07 Lymph # (Auto) 1.7 K/uL (1.0-4.3) 09/28/18 06:07 [place] # (Auto) 0.3 K/uL (0.0-0.8) 09/28/18 06:07 Eos # (Auto) 0.1 K/uL (0.0-0.7) 09/28/18 06:07 Baso # (Auto) 0.0 K/uL (0.0-0.2) 09/28/18 06:07 Puncture Site Rb 09/25/18 05:40 pCO2 26 mm/Hg (35-45) L 09/25/18 05:40 pO2 156 mm/Hg (80-100) H 09/25/18 05:40 HCO3 22.1 mmol/L (21-28) 09/25/18 05:40 ABG pH 7.47 (7.35-7.45) H 09/25/18 05:40 ABG Total CO2 19.7 mmol/L (22-28) L 09/25/18 05:40 ABG O2 Saturation 99.4 % (95-98) H 09/25/18 05:40 ABG Base Excess -3.7 mmol/L (-2.0-3.0) L 09/25/18 05:40 ABG Hemoglobin 10.5 g/dL (11.7-17.4) L 09/25/18 05:40 ABG Carboxyhemoglobin 1.2 % (0.5-1.5) 09/25/18 05:40 POC ABG HHb (Measured) 0.6 % (0.0-5.0) 09/25/18 05:40 ABG Methemoglobin 0.7 % (0.0-3.0) 09/25/18 05:40 Diaz Test Na 09/25/18 05:40 A-a O2 Difference 97.0 mm/Hg 09/25/18 05:40 Respiratory Index 0.6 09/25/18 05:40 Hgb O2 Saturation 97.5 % (95.0-98.0) 09/25/18 05:40 Vent Mode Prvc 09/25/18 05:40 Mechanical Rate 20 09/25/18 05:40 FiO2 40.0 % 09/25/18 05:40 Tidal Volume 450 09/25/18 05:40 PEEP 5 09/25/18 05:40 Sodium 137 mmol/L (132-148) 09/28/18 06:05 Potassium 3.4 mmol/L (3.6-5.2) L 09/28/18 06:05 Chloride 107 mmol/L (98-107) 09/28/18 06:05 Carbon Dioxide 22 mmol/L (22-30) 09/28/18 06:05 Anion Gap 12 (10-20) 09/28/18 06:05 BUN 7 mg/dL (7-17) 09/28/18 06:05 Creatinine 0.5 mg/dL (0.7-1.2) L 09/28/18 06:05 Est GFR ( Amer) > 60 09/28/18 06:05 Est GFR (Non-Af Amer) > 60 09/28/18 06:05 POC Glucose (mg/dL) 108 mg/dL (65-110) 09/26/18 12:39 Random Glucose 94 mg/dL (65-105) 09/28/18 06:05 Lactic Acid 1.4 mmol/L (0.7-2.1) 09/25/18 05:55 Calcium 8.3 mg/dl (8.6-10.4) L 09/28/18 06:05 Phosphorus 3.1 mg/dL (2.5-4.5) 09/28/18 06:05 Magnesium 1.9 mg/dL (1.6-2.3) 09/28/18 06:05 Total Bilirubin 0.5 mg/dL (0.2-1.3) 09/28/18 06:05 AST 28 U/L (14-36) 09/28/18 06:05 ALT 47 U/L (9-52) 09/28/18 06:05 Alkaline Phosphatase 84 U/L (38-126) 09/28/18 06:05 Total Creatine Kinase 185 U/L (30-135) H 09/24/18 21:10 CK-MB (Mass) 0.71 ng/mL (0.0-3.38) 09/24/18 21:10 Troponin I < 0.0120 ng/mL (0.00-0.120) 09/24/18 21:10 Total Protein 6.5 g/dL (6.3-8.3) 09/28/18 06:05 Albumin 3.7 g/dL (3.5-5.0) 09/28/18 06:05 Globulin 2.8 gm/dL (2.2-3.9) 09/28/18 06:05 Albumin/Globulin Ratio 1.3 (1.0-2.1) 09/28/18 06:05 Urine Opiates Screen Negative (NEGATIVE) 09/26/18 15:20 Urine Methadone Screen Negative (NEGATIVE) 09/26/18 15:20 Ur Barbiturates Screen Negative (NEGATIVE) 09/26/18 15:20 Ur Phencyclidine Scrn Negative (NEGATIVE) 09/26/18 15:20 Ur Amphetamines Screen Negative (NEGATIVE) 09/26/18 15:20 U Benzodiazepines Scrn Negative (NEGATIVE) 09/26/18 15:20 U Oth Cocaine Metabols Negative (NEGATIVE) 09/26/18 15:20 U Cannabinoids Screen Negative (NEGATIVE) 09/26/18 15:20 Attending/Attestation - Attestation I have personally seen and examined this patient.: Yes I have fully participated in the care of the patient.: Yes I have reviewed all pertinent clinical information, including history, physical exam and plan: Yes
[2018-09-29] MEDS ORDERED: Pantoprazole 20 mg EC Tab PO SCH (10:00)
== END 2018-09-28 17:23 | disposition home or self-care (01) | DRG 100 ==
LOC: C.ER 18:13 → C.9I 19:20
PROVIDERS: ADMIT Hospitalist; ATTEND Hospitalist
DX: G40.901 Epilepsy, unspecified, not intractable, with status epilepticus (principal); J69.0 Pneumonitis due to inhalation of food and vomit; J90 Pleural effusion, not elsewhere classified; G93.89 Other specified disorders of brain; Z86.73 Personal history of transient ischemic attack (TIA), and cerebral infarction without residual deficits; Z85.841 Personal history of malignant neoplasm of brain